=== PATIENT | male | born 1950 | race African-American/Black ===

== ENCOUNTER 2019-08-11 12:08 | Inpatient (IN) ==
[2019-08-11] MEDS ORDERED: SODIUM CHLORIDE 0.9% 1000ML 2,000 ML IV ONE (12:36)
[2019-08-11 12:44] VITALS: TEMP 99.1
--- NOTE | 2019-08-11 12:48 | Emergency Department Note ---
Entered by Annalee Toth acting as a scribe for Vinny Saldivar DO History of Present Illness General Chief complaint: Shortness of Breath/Dyspnea Time Seen by Provider: 08/11/19 12:26 Source: patient and RN notes reviewed Limitations: altered mental status History of Present Illness Onset (ago): hour(s) (prior to arrival) Location: left and right Pain Consistency: + other (episode) Quality: + other (lethargy) Associated symptoms: + shortness of breath and + other (-abdominal pain) The HPI and ROS are limited due to the patient's present altered mental status. The patient is a 69 year old male, with past medical history of prostate cancer and hepatitis C, who presents to the Emergency Room with complaints of an episode of lethargy that began prior to arrival. The patient also reports he feels short of breath, but the patient does not report of any abdominal pain. The RN reports the patients respiratory rate has been in the 40s and 50s, and he states neither him nor EMS could obtain a pulse oximeter reading. Home Medications Home Medications Medication Instructions Recorded Confirmed Type tamsulosin 0.4 mg PO HS 08/11/19 08/11/19 History Allergies Allergy/AdvReac Type Severity Reaction Status Date / Time No Known Allergies Allergy Verified 08/11/19 12:51 Past Med/Surg History Medical History Elevated PSA (Acute) Hepatitis C (Acute) Prostate cancer (Acute) Surgical History H/O foot surgery (Acute) Let tarun / re set arches 1960 `s H/O prostate biopsy (Acute) BX 03-06-2019 Family History Mother , in her 80 ` s Natural Father , in his 80` s Natural Brother No problems noted. Brother , age 60 `s Hypertension Coronary heart disease Brother , age 30 ` s Gunshot wound Sister No problems noted. Sister No problems noted. Sister No problems noted. Sister , in her 20 ` s Gunshot wound Social History Preferred Language: Guyanese Communication Ability: Effective Visual Impairment: No Limitations Hearing Ability: Normal Belt Turner Required: No Beliefs That Will Affect Care: None Current Living Situation: Other Current Living Situation Comment: Inmate at [facility] Shelter current occupational status: unemployed Feels Safe at Home: Yes Smoking Status: Never smoker Review of Systems See HPI for pertinent positives & negatives. Unobtainable due to cognitive status Physical Exam Vital Signs Vital Signs - 24 hr 08/11/19 12:41 08/11/19 12:44 08/11/19 14:02 Temperature 37.3 C Temperature Source Oral Pulse Rate 109 H Pulse Rate [Apical] 102 H Pulse Rhythm Regular Pulse Strength Normal Respiratory Rate 48 H 24 Respiratory Effort / Characteristics Spontaneous Respiratory Depth Normal Normal Respiratory Pattern Tachypnea Tachypnea Blood Pressure 125/75 Blood Pressure [Left Arm] 115/74 Blood Pressure Mean 91 Blood Pressure Mean [Left Arm] 87 Oxygen Delivery Method Nasal Cannula Oxygen Flow Rate 3 Sepsis Recent Fever Within 48 Hours No Sepsis Action Taken by Nursing No Action Required CONSTITUTIONAL/VITAL SIGNS: Reviewed / noted above. GENERAL: Non-toxic in appearance. Generalized weakness. INTEGUMENTARY: Warm, dry, and [place]. HEAD: Normocephalic. EYES: without scleral icterus or trauma. ENT/OROPHARYNX: clear and moist. LYMPHADENOPATHY/NECK: Is supple without lymphadenopathy or meningismus. RESPIRATORY: Lungs clear and equal. Tachypneic. CARDIOVASCULAR: Regular rate and rhythm. GI/ABDOMEN: Soft and nontender. No organomegaly or pulsatile mass. No rebound or guarding. Normal bowel sounds. EXTREMITIES: Warm and well perfused. Chronic-appearing pedal edema. BACK: No CVA tenderness. NEUROLOGICAL: Intact without focal deficits. PSYCHIATRIC: normal affect. MUSCULOSKELETAL: Normally developed with good muscle tone. Procedures ABG Interpretation ABG Interpretation 1: Interpretation: abnormal, respiratory alkalosis and metabolic acidosis Course Course 1227: Past medical records reviewed. The patient was evaluated in room B5. A complete history and physical exam was performed. 1446: I reviewed the patient's case with Dr. Leroy-Thomas [facility]. Dr. Leroy will evaluate the patient for further management. Consultations Consultation #1: I reviewed the patient's case with Dr. Leroy-Thomas [facility]. Dr. Leroy will evaluate the patient for further management. Time: 14:46 Administered Medications Discontinued Medications Aspirin (Aspirin Chew) 324 mg PO NOW STA Stop: 08/11/19 14:33 Last Admin: 08/11/19 15:05 Dose: Not Given Documented by: [id number] Sodium Chloride (Nss 1000ml) 2,000 mls @ 999 mls/hr IV .Q2H1M ONE Stop: 08/11/19 14:36 Last Admin: 08/11/19 13:00 Dose: 999 mls/hr Documented by: [id number] Sodium Chloride (Nss 1000ml) 1,000 mls @ 999 mls/hr IV .Q1H1M ONE Stop: 08/11/19 15:30 Last Admin: 08/11/19 15:04 Dose: 999 mls/hr Documented by: [id number] Ceftriaxone Sodium (Rocephin) 1,000 mg in 50 mls @ 100 mls/hr IV NOW STA Stop: 08/11/19 15:27 Last Admin: 08/11/19 15:00 Dose: 100 mls/hr Documented by: [id number] Critical Care Time Critical Care Time: Yes Total Critical Care Time: 45 I have personally spent 45 minutes of critical care time in the direct management of this patient. This includes bedside care, interpretation of diagnostic studies, and testing, discussion with consultants, patient, and family members, and other required patient management activities. This 45 minutes is in excess of all separately billable procedures. Medical Decision Making Differential Diagnosis Differential diagnosis: Etiologies such as metabolic, infection, hypo/hyperglycemia, electrolyte abnormalities, cardiac sources, intracerebral event, toxicologic, neurologic, as well as others were entertained. Medical Records Attestation: I reviewed the patient's medical records. Home Medications Current Medication List: was personally reviewed by me Laboratory Data Attestation: I reviewed the patient's lab results. Result diagrams: 08/11/19 14:25 08/11/19 13:19 Lab Results 08/11/19 08/11/19 08/11/19 Range/Units 12:45 13:19 13:19 WBC Cancelled RBC Cancelled Hgb Cancelled Hct Cancelled MCV Cancelled MCH Cancelled MCHC Cancelled RDW Std Deviation Cancelled RDW Coeff of Nik Cancelled Plt Count Cancelled MPV Cancelled Immature Gran % (Auto) Cancelled Neut % (Auto) Cancelled Lymph % (Auto) Cancelled Marion % (Auto) Cancelled Eos % (Auto) Cancelled Baso % (Auto) Cancelled Immature Gran # (Auto) Cancelled Neut # (Auto) Cancelled Lymph # (Auto) Cancelled Marion # (Auto) Cancelled Eos # (Auto) Cancelled Baso # (Auto) Cancelled Absolute Nucleated RBC Cancelled Nucleated RBC % (auto) Cancelled Neutrophils % (Manual) Cancelled Band Neutrophils % Cancelled Lymphocytes % (Manual) Cancelled Prolymphocyte % Cancelled Reactive Lymphs % (Man) Cancelled Monocytes % (Manual) Cancelled Eosinophils % (Manual) Cancelled Basophils % (Manual) Cancelled Metamyelocytes % (Man) Cancelled Myelocytes % (Man) Cancelled Promyelocytes % (Man) Cancelled Blast Cells % (Manual) Cancelled Plasma Cell % (Manual) Cancelled Other Cells % Cancelled Nucleated RBC % Cancelled Neutrophils # (Manual) Cancelled Band Neutrophils # Cancelled Total Absolute Neuts Cancelled Lymphocytes # (Manual) Cancelled Prolymphocyte # Cancelled Reactive Lymphs # Cancelled Total Abs Lymphocytes Cancelled Monocytes # (Manual) Cancelled Eosinophils # (Manual) Cancelled Basophils # (Manual) Cancelled Metamyelocytes # (Man) Cancelled Myelocytes # (Manual) Cancelled Promyelocytes # (Man) Cancelled Blast Cells # (Man) Cancelled Plasma Cell # (Manual) Cancelled Other Cells # Cancelled Nucleated RBCs # (Man) Cancelled Hypersegmented Neuts Cancelled Hyposegmented Neuts Cancelled Hypogranular Neuts Cancelled Large Granular Lymphs Cancelled # Lrg Granular Lymphs Cancelled Hairy Cells Cancelled Smudge Cells Cancelled Toxic Granulation Cancelled Toxic Vacuolation Cancelled Dohle Bodies Cancelled Barbara Rods Cancelled Platelet Estimate Cancelled Hypogranular Platelets Cancelled Clumped Platelets Cancelled Giant Platelets Cancelled Platelet Satelliting Cancelled RBC Morphology Cancelled Polychromasia Cancelled Hypochromasia Cancelled Poikilocytosis Cancelled Basophilic Stippling Cancelled Anisocytosis Cancelled Microcytosis Cancelled Macrocytosis Cancelled Spherocytes Cancelled Pappenheimer Bodies Cancelled Sickle Cells Cancelled Target Cells Cancelled Tear Drop Cells Cancelled Ovalocytes Cancelled Stomatocytes Cancelled Wharton-Frost Bodies Cancelled Echinocytes Cancelled Acanthocytes (Spur) Cancelled Rouleaux Cancelled RBC Agglutinates Cancelled Schistocytes Cancelled RBC Morph Comment Cancelled Sezary Cell Cancelled PT 14.6 H (9.0-12.0) Seconds INR 1.5 H (0.9-1.1) APTT 29.0 (21.0-31.0) Seconds PTT Ratio 1.1 ABG pH (7.35-7.45) ABG pCO2 (35-46) mmHg ABG pO2 (80-95) mmHg ABG HCO3 (19-24) mmol/L ABG O2 Saturation (90-95) % ABG Base Excess (-9-1.8) mEq/L Nigel Test (Pos) Barometric Pressure mm/Hg Oxygen Given Sodium (136-145) mmol/L Potassium (3.5-5.1) mmol/L Chloride (98-107) mmol/L Carbon Dioxide (21-32) mmol/L Anion Gap (3-11) BUN (7-18) mg/dl Creatinine (0.6-1.4) mg/dl Est Cr Clr Drug Dosing Est GFR ( Amer) Est GFR (Non-Af Amer) BUN/Creatinine Ratio (10-20) Glucose (70-99) mg/dl Lactate (0.4-2.0) mmol/L Calcium (8.5-10.1) mg/dl Magnesium (1.8-2.4) mg/dl Total Bilirubin (0.2-1) mg/dl AST (15-37) U/L ALT (12-78) U/L Alkaline Phosphatase (45-117) U/L Ammonia (11-32) umol/L Troponin I (0-0.045) ng/ml Total Protein (6.4-8.2) gm/dl Albumin (3.4-5.0) gm/dl Globulin (2.5-4.0) gm/dl Albumin/Globulin Ratio (0.9-2) TSH (0.300-4.500) uIu/ml Ethyl Alcohol mg/dL (0-3) mg/dl Influenza Type A Ag Neg for Influ A (Neg) Influenza Type B Ag Neg for Influ B (Neg) 08/11/19 08/11/19 08/11/19 Range/Units 13:19 13:19 13:30 WBC RBC Hgb Hct MCV MCH MCHC RDW Std Deviation RDW Coeff of Nik Plt Count MPV Immature Gran % (Auto) Neut % (Auto) Lymph % (Auto) Marion % (Auto) Eos % (Auto) Baso % (Auto) Immature Gran # (Auto) Neut # (Auto) Lymph # (Auto) Marion # (Auto) Eos # (Auto) Baso # (Auto) Absolute Nucleated RBC Nucleated RBC % (auto) Neutrophils % (Manual) Band Neutrophils % Lymphocytes % (Manual) Prolymphocyte % Reactive Lymphs % (Man) Monocytes % (Manual) Eosinophils % (Manual) Basophils % (Manual) Metamyelocytes % (Man) Myelocytes % (Man) Promyelocytes % (Man) Blast Cells % (Manual) Plasma Cell % (Manual) Other Cells % Nucleated RBC % Neutrophils # (Manual) Band Neutrophils # Total Absolute Neuts Lymphocytes # (Manual) Prolymphocyte # Reactive Lymphs # Total Abs Lymphocytes Monocytes # (Manual) Eosinophils # (Manual) Basophils # (Manual) Metamyelocytes # (Man) Myelocytes # (Manual) Promyelocytes # (Man) Blast Cells # (Man) Plasma Cell # (Manual) Other Cells # Nucleated RBCs # (Man) Hypersegmented Neuts Hyposegmented Neuts Hypogranular Neuts Large Granular Lymphs # Lrg Granular Lymphs Hairy Cells Smudge Cells Toxic Granulation Toxic Vacuolation Dohle Bodies Barbara Rods Platelet Estimate Hypogranular Platelets Clumped Platelets Giant Platelets Platelet Satelliting RBC Morphology Polychromasia Hypochromasia Poikilocytosis Basophilic Stippling Anisocytosis Microcytosis Macrocytosis Spherocytes Pappenheimer Bodies Sickle Cells Target Cells Tear Drop Cells Ovalocytes Stomatocytes Wharton-Frost Bodies Echinocytes Acanthocytes (Spur) Rouleaux RBC Agglutinates Schistocytes RBC Morph Comment Sezary Cell PT (9.0-12.0) Seconds INR (0.9-1.1) APTT (21.0-31.0) Seconds PTT Ratio ABG pH (7.35-7.45) ABG pCO2 (35-46) mmHg ABG pO2 (80-95) mmHg ABG HCO3 (19-24) mmol/L ABG O2 Saturation (90-95) % ABG Base Excess (-9-1.8) mEq/L Nigel Test (Pos) Barometric Pressure mm/Hg Oxygen Given Sodium 138 (136-145) mmol/L Potassium 4.0 (3.5-5.1) mmol/L Chloride 104 (98-107) mmol/L Carbon Dioxide 19 L (21-32) mmol/L Anion Gap 15.0 H (3-11) BUN 72 H (7-18) mg/dl Creatinine 3.95 H (0.6-1.4) mg/dl Est Cr Clr Drug Dosing Not Reportable Est GFR ( Amer) 17.1 Est GFR (Non-Af Amer) 14.7 BUN/Creatinine Ratio 18.2 (10-20) Glucose 130 H (70-99) mg/dl Lactate (0.4-2.0) mmol/L Calcium 9.3 (8.5-10.1) mg/dl Magnesium 2.5 H (1.8-2.4) mg/dl Total Bilirubin 2.0 H (0.2-1) mg/dl AST 633 H (15-37) U/L ALT 246 H (12-78) U/L Alkaline Phosphatase 45 (45-117) U/L Ammonia < 10.0 L (11-32) umol/L Troponin I 96.700 H* (0-0.045) ng/ml Total Protein 7.9 (6.4-8.2) gm/dl Albumin 2.8 L (3.4-5.0) gm/dl Globulin 5.1 H (2.5-4.0) gm/dl Albumin/Globulin Ratio 0.6 L (0.9-2) TSH 1.140 (0.300-4.500) uIu/ml Ethyl Alcohol mg/dL < 3.0 (0-3) mg/dl Influenza Type A Ag (Neg) Influenza Type B Ag (Neg) 08/11/19 08/11/19 08/11/19 Range/Units 13:30 13:43 14:25 WBC 9.01 RBC 4.44 L Hgb 13.3 L Hct 38.3 L MCV 86.3 MCH 30.0 MCHC 34.7 RDW Std Deviation 43.7 RDW Coeff of Nik 14.0 Plt Count 99 L MPV 11.2 H Immature Gran % (Auto) 1.0 Neut % (Auto) 87.4 Lymph % (Auto) 6.2 Marion % (Auto) 5.3 Eos % (Auto) 0.0 Baso % (Auto) 0.1 Immature Gran # (Auto) 0.09 H Neut # (Auto) 7.87 H Lymph # (Auto) 0.56 L Marion # (Auto) 0.48 Eos # (Auto) 0.00 Baso # (Auto) 0.01 Absolute Nucleated RBC Nucleated RBC % (auto) Neutrophils % (Manual) Band Neutrophils % Lymphocytes % (Manual) Prolymphocyte % Reactive Lymphs % (Man) Monocytes % (Manual) Eosinophils % (Manual) Basophils % (Manual) Metamyelocytes % (Man) Myelocytes % (Man) Promyelocytes % (Man) Blast Cells % (Manual) Plasma Cell % (Manual) Other Cells % Nucleated RBC % Neutrophils # (Manual) Band Neutrophils # Total Absolute Neuts Lymphocytes # (Manual) Prolymphocyte # Reactive Lymphs # Total Abs Lymphocytes Monocytes # (Manual) Eosinophils # (Manual) Basophils # (Manual) Metamyelocytes # (Man) Myelocytes # (Manual) Promyelocytes # (Man) Blast Cells # (Man) Plasma Cell # (Manual) Other Cells # Nucleated RBCs # (Man) Hypersegmented Neuts Hyposegmented Neuts Hypogranular Neuts Large Granular Lymphs # Lrg Granular Lymphs Hairy Cells Smudge Cells Toxic Granulation Toxic Vacuolation 2+ Dohle Bodies Barbara Rods Platelet Estimate Decreased L Hypogranular Platelets Clumped Platelets Giant Platelets 1+ Platelet Satelliting RBC Morphology Polychromasia Hypochromasia Poikilocytosis Basophilic Stippling Anisocytosis Microcytosis Macrocytosis Spherocytes Pappenheimer Bodies Sickle Cells Target Cells Tear Drop Cells Ovalocytes Stomatocytes Wharton-Frost Bodies Echinocytes Acanthocytes (Spur) Rouleaux RBC Agglutinates Schistocytes RBC Morph Comment Sezary Cell PT (9.0-12.0) Seconds INR (0.9-1.1) APTT (21.0-31.0) Seconds PTT Ratio ABG pH 7.53 H* (7.35-7.45) ABG pCO2 23 L (35-46) mmHg ABG pO2 64 L (80-95) mmHg ABG HCO3 19 (19-24) mmol/L ABG O2 Saturation 93.0 (90-95) % ABG Base Excess -2.3 (-9-1.8) mEq/L Nigel Test Pos (Pos) Barometric Pressure 737.0 mm/Hg Oxygen Given ROOM AIR Sodium (136-145) mmol/L Potassium (3.5-5.1) mmol/L Chloride (98-107) mmol/L Carbon Dioxide (21-32) mmol/L Anion Gap (3-11) BUN (7-18) mg/dl Creatinine (0.6-1.4) mg/dl Est Cr Clr Drug Dosing Est GFR ( Amer) Est GFR (Non-Af Amer) BUN/Creatinine Ratio (10-20) Glucose (70-99) mg/dl Lactate 6.5 H* (0.4-2.0) mmol/L Calcium (8.5-10.1) mg/dl Magnesium (1.8-2.4) mg/dl Total Bilirubin (0.2-1) mg/dl AST (15-37) U/L ALT (12-78) U/L Alkaline Phosphatase (45-117) U/L Ammonia (11-32) umol/L Troponin I (0-0.045) ng/ml Total Protein (6.4-8.2) gm/dl Albumin (3.4-5.0) gm/dl Globulin (2.5-4.0) gm/dl Albumin/Globulin Ratio (0.9-2) TSH (0.300-4.500) uIu/ml Ethyl Alcohol mg/dL (0-3) mg/dl Influenza Type A Ag (Neg) Influenza Type B Ag (Neg) Imaging Data Radiologist's Impression: Radiology results as stated below per my review and the radiologist's interpretation: XR chest 1V portable CLINICAL HISTORY: sob COMPARISON STUDY: No previous studies for comparison. FINDINGS: The heart is enlarged. There is a retrocardiac opacity consistent with a hiatal hernia. There is an 8 cm right upper lobe airspace opacity. It is not possible to differentiate pneumonia from a pulmonary mass in the bases of the study. Clinical and radiographic follow-up is recommended.[ IMPRESSION: 8 cm right upper lobe airspace opacity, pneumonia versus pulmonary mass. Clinical and radiographic follow-up is recommended. ACT 112: Negative or not required by law. Electronically signed by: Xavi Downing M.D. 08/11/2019 12:[address] CT DOSE: 729.78 mGycm HISTORY: Altered mental status. TECHNIQUE: Multiaxial CT images of the head were performed without the use of intravenous contrast. Automated exposure control was utilized for this study. A dose lowering technique was utilized adhering to the principles of ALARA. Comparison: None. Findings: The paranasal sinuses and mastoid air cells are clear. The calvarium and skull base are intact. The ventricles and sulci are within normal limits. There is no mass, hematoma, midline shift, or acute infarct. Impression: No acute intracranial abnormality. ACT 112: Negative or not required by law. Electronically signed by: Sang Duffy M.D. 08/11/2019 2:[address] chest wo con CT DOSE: 787.65 mGycm HISTORY: Mass chest mass vs pneumonia TECHNIQUE: Multiaxial CT images of the chest were performed without contrast. A dose lowering technique was utilized adhering to the principles of ALARA. COMPARISON: Chest series 08/11/2019 FINDINGS: Consolidative infiltrative process versus mass right perihilar and right suprahilar region. This has maximum overall dimensions of 9.6 x 6.6 cm. Several air bronchograms are present. Medially peripheral to this consolidative process are small nodules primarily in the right middle lobe region measuring up to 2.3 cm. Patient with partial truncation of the right lower lobe mainstem bronchus. The left lung demonstrates mild left basilar atelectasis. Left lung otherwise is clear. No significant mediastinal or hilar adenopathy within limitations of the masslike changes previously described. Diagnostic considerations include consolidative infiltrate versus mass. May be a minimal infiltrative process superior segment right lower lobe as well. IMPRESSION: 1. Consolidative infiltrate versus mass right suprahilar and right perihilar region. 2. Additional satellite type nodules adjacent to the right hilum as well as in the superior segment right lower lobe. 3. Clinical options include bronchoscopy, versus a repeat CT scan following appropriate course of medical nonsurgical treatment. 4. Regardless, in any event this CT should be closely followed to ensure complete resolution. ACT 112: Negative or not required by law. The above report was generated using voice recognition software. It may contain grammatical, syntax or spelling errors. Electronically signed by: Raúl Feliz M.D. 08/11/2019 3:00 PM ECG Data Attestation: I personally reviewed and interpreted this ECG as follows: Indication: + SOB/dyspnea, + tachycardia and + weakness Rate (beats per minute): 118 Rhythm: + sinus tachycardia ECG Intervals/blocks: + First degree AV block, + Left bundle branch block and + Normal QT-c ECG Findings: no PVCs Blood Pressure Blood Pressure Findings: Normal blood pressure MDM Narrative This is a 69-year-old male who presents to the ED from the local nursing home. The patient presents lethargic. He does report some shortness of breath and weakness. He is unable to provide any significant history as he appears to be too weak and he whispers when he speaks and therefore he is unable to be heard. The patient appears to be generally weak. His vital signs are noted. He is slightly tachycardic and tachypneic. He is afebrile. Pulse ox is not able to be detected as the patient's fingers are cool. His blood pressure seems to be fine but his radial pulses are somewhat thready. He is slightly tachycardic. He does not appear to be in any distress but seems significantly weak. The patient does not have any abdominal tenderness. His lungs are diminished but appear to be clear. He does have some chronic appearing pedal edema. Rest of exam was unremarkable. A twelve-lead EKG shows a sinus tachycardia at a rate of 118 with a left bundle branch block. No old EKGs available for comparison. Lactic acid level 6.5. BUN is 72 and creatinine is 3.95. Creatinine on 07/22/2019 was 1.09. AST is 633 and ALT is 246. Troponin came back elevated at 99. Flu swab was negative. Chest x-ray reveals right upper lobe airspace mass versus infiltrate. A CT scan shows the same thing of the chest. ABG reveals a respiratory alkalosis with a PCO2 of 23. This is likely a overcompensated respiratory alkalosis compensating for metabolic acidosis. PO2 was 64 on room air. This is adequate oxygenation. The patient was given a total of 3 L of no rmal saline IV. He was started on IV Rocephin as well as given IV Zosyn. He was given aspirin p.o. but cannot tolerate p.o. He could not swallow it. He states that this is been going on for a couple of weeks where he cannot swallow substances. Alcohol level is negative. TSH was normal. The patient will be seen by the hospitalist for further inpatient evaluation and care. Impression & Plan Acute renal failure, AMS (altered mental status), Elevated troponin, Complete left bundle branch block (LBBB) Discharge Plan Visit Data Chief Complaint: Shortness of Breath/Dyspnea ED Provider: Vinny Saldivar Discharge Problem: Acute renal failure, AMS (altered mental status), Elevated troponin, Complete left bundle branch block (LBBB) Patient Disposition: Being Evaluated by Hospitalist Forms Stand Alone Forms: My [facility] Prescriptions Prescriptions: No Action tamsulosin 0.4 mg Capsule 0.4 mg PO HS RF: 0 Referrals Referrals: Wanda FELIZ [Primary Care Provider] - Discharge Problem: Acute renal failure Qualifiers: Acute renal failure type: unspecified Qualified Code(s): N17.9 - Acute kidney failure, unspecified AMS (altered mental status) Qualifiers: Altered mental status type: unspecified Qualified Code(s): R41.82 - Altered mental status, unspecified The scribe's documentation has been prepared under my direction and personally reviewed by me in its entirety. I confirm that the note above accurately reflects all work, treatment, procedures, and medical decision making performed by me.
--- NOTE | 2019-08-11 12:59 | XRay Report ---
XR chest 1V portable CLINICAL HISTORY: sob COMPARISON STUDY: No previous studies for comparison. FINDINGS: The heart is enlarged. There is a retrocardiac opacity consistent with a hiatal hernia. The re is an 8 cm right upper lobe airspace opacity. It is not possible to differentiate pneumonia from a pulmonary mass in the bases of the study. Clinical and radiographic follow-up is recommended.[ IMPRESSION: 8 cm right upper lobe airspace opacity, pneumonia versus pulmonary mass. Clinical and rad iographic follow-up is recommended. ACT 112: Negative or not required by law. Electronically signed by: Xavi Downing M.D. 08/11/2019 12:58 PM
[2019-08-11 13:54] LABS: Base Excess ABG -2.3 mEq/L (-9-1.8); HCO3 ABG 19 mmol/L (19-24); PCO2 ABG 23 mmHg (35-46); PO2 ABG 64 mmHg (80-95)
[2019-08-11 13:56] LABS: INR 1.5 (0.9-1.1); Partial Thromboplastin Ratio 1.1; Prothrombin Time 14.6 Seconds (9.0-12.0)
[2019-08-11 14:00] LABS: pH ABG 7.53 (7.35-7.45)
[2019-08-11 14:01] LABS: Allen Test Pos (Pos)
[2019-08-11 14:02] LABS: Alanine Aminotransferase 246 U/L (12-78); Albumin Level 2.8 gm/dl (3.4-5.0); Aspartate Aminotransferase 633 U/L (15-37); BUN Creatinine Ratio 18.2 (10-20); Blood Urea Nitrogen 72 mg/dl (7-18); Calcium 9.3 mg/dl (8.5-10.1); Carbon Dioxide 19 mmol/L (21-32); Chloride 104 mmol/L (98-107); Est GFR (African American) 17.1; Est GFR (Non-African American) 14.7; Glucose 130 mg/dl (70-99); Magnesium 2.5 mg/dl (1.8-2.4); Sodium 138 mmol/L (136-145)
[2019-08-11 14:24] LABS: Albumin Globulin Ratio 0.6 (0.9-2); Alkaline Phosphatase 45 U/L (45-117); Globulin 5.1 gm/dl (2.5-4.0); Total Protein 7.9 gm/dl (6.4-8.2)
[2019-08-11] MEDS ORDERED: SODIUM CHLORIDE 0.9% 1000ML 1,000 ML IV ONE (14:30)
[2019-08-11] MEDS ORDERED: ASPIRIN 81 MG CHEW PO STA (14:32)
[2019-08-11 14:54] LABS: Basophils # (auto) 0.01 K/uL (0-0.2); Basophils % (auto) 0.1 %; Giant Platelets 1+; Hematocrit (blood only) 38.3 % (42-52); Hemoglobin 13.3 g/dL (14.0-18.0); Immature Granulocytes # (auto) 0.09 K/uL (0.00-0.02); Lymphocytes # (auto) 0.56 K/uL (1.2-3.4); Lymphocytes % (auto) 6.2 %; Mean Corpuscular Hgb Conc 34.7 g/dL (32-36); Mean Corpuscular Volume 86.3 fL (80-100); Mean Platelet Volume 11.2 fL (7.4-10.4); Monocytes # (auto) 0.48 K/uL (0.11-0.59); Monocytes % (auto) 5.3 %; Neutrophils # (auto) 7.87 K/uL (1.4-6.5); Neutrophils % (auto) 87.4 %; Platelet Count 99 K/uL (130-400); Platelet Estimate Decreased (Normal); RDW Standard Deviation 43.7 fL (36.4-46.3); Red Blood Count 4.44 M/uL (4.7-6.1); Toxic Vacuolation 2+; White Blood Count 9.01 K/uL (4.8-10.8)
[2019-08-11] MEDS ORDERED: cefTRIAXone SODIUM 1,000 MG/50 ML BAG IV STA (14:58)
--- NOTE | 2019-08-11 14:58 | CT Scan Report ---
HEAD CT NONCONTRAST CT DOSE: 729.78 mGycm HISTORY: Altered mental status. TECHNIQUE: Multiaxial CT images of the head were performed without the use of intravenous contrast. A utomated exposure control was utilized for this study. A dose lowering technique was utilized adheri ng to the principles of ALARA. Comparison: None. Findings: The paranasal sinuses and mastoid air cells are clear. The calvarium and skull base are int act. The ventricles and sulci are within normal limits. There is no mass, hematoma, midline shift, or acute infarct. Impression: No acute intracranial abnormality. ACT 112: Negative or not required by law. Electronically signed by: Sang Duffy M.D. 08/11/2019 2:56 PM
--- NOTE | 2019-08-11 15:01 | CT Scan Report ---
CT chest wo con CT DOSE: 787.65 mGycm HISTORY: Mass chest mass vs pneumonia TECHNIQUE: Multiaxial CT images of the chest were performed without contrast. A dose lowering techni que was utilized adhering to the principles of ALARA. COMPARISON: Chest series 08/11/2019 FINDINGS: Consolidative infiltrative process versus mass right perihilar and right suprahilar region. This has maximum overall dimensions of 9.6 x 6.6 cm. Several air bronchograms are present. Medially peripheral to this consolidative process are small nodules primarily in the right middle lob e region measuring up to 2.3 cm. Patient with partial truncation of the right lower lobe mainstem bronchus. The left lung demonstrates mild left basilar atelectasis. Left lung otherwise is clear. No significant mediastinal or hilar adenopathy within limitations of the masslike changes previously described. Diagnostic considerations include consolidative infiltrate versus mass. May be a minimal infiltrative process superior segment right lower lobe as well. IMPRESSION: 1. Consolidative infiltrate versus mass right suprahilar and right perihilar region. 2. Additional satellite type nodules adjacent to the right hilum as well as in the superior segment r ight lower lobe. 3. Clinical options include bronchoscopy, versus a repeat CT scan following appropriate course of med ical nonsurgical treatment. 4. Regardless, in any event this CT should be closely followed to ensure complete resolution. ACT 112: Negative or not required by law. The above report was generated using voice recognition software. It may contain grammatical, syntax or spelling errors. Electronically signed by: Raúl Feliz M.D. 08/11/2019 3:00 PM
[2019-08-11] MEDS ORDERED: PIPERACILL/TAZOBAC CONSULT ACTIVE PRN (15:29)
[2019-08-11] MEDS ORDERED: PIPERACILLIN/TAZOBACTAM 4.5 GM/120 ML BAG IV ONE (15:29)
[2019-08-11] MEDS ORDERED: RAPID SEQUENCE INDUCTION BAG ONE (16:21)
[2019-08-11] MEDS ORDERED: PROPOFOL IV EMULSION 10 MG/ML 100 ML VIAL IV ONE ×2 (16:21→16:55)
[2019-08-11 16:35] LABS: Creatine Kinase MB 49.4 ng/ml (0.5-3.6)
[2019-08-11] MEDS ORDERED: MIDAZOLAM HCL 1 MG/ML 2ML VIAL ONE ×2 (16:45→17:53)
[2019-08-11] MEDS ORDERED: fentaNYL citrate 100 MCG/2 ML VIAL ONE (16:45)
[2019-08-11] MEDS ORDERED: NiCARDipine HCL INJ 2.5 MG/ML 10 ML AMP ONE (16:45)
[2019-08-11] MEDS ORDERED: HEPARIN (PORCINE) 1000 UNIT/ML 10 ML (CATH LAB USE ONLY) ONE ×2 (16:45→17:30)
[2019-08-11] MEDS ORDERED: NITROGLYCERIN/D5W 100MCG/ML 20ML SYR ONE (16:46)
--- NOTE | 2019-08-11 16:47 | History & Physical Report ---
Date of Service August 11, 2019 Assessment & Plan (1) Elevated troponin: 69yo AA male with history of prostate CA on XRT, HCV presenting from [facility] with complaint of lethargy. Patient found to have markedly elevated troponin of 96.7 with LBBB on EKG. Also with elevated lactic acid, KELL and elevated liver studies. MICU consulted urgently for admission Cardiology consulted urgently for possible catheterization Bedside echocardiogram performed which revealed severely depressed EF. Patient intubated in the ER and sent for urgent cardiac catheterization. Neuro - patient somnolent, arousable, answers some questions and follows some commands. No focal deficits. Per discussion with COs at bedside, patient is ambulatory and conversational normally and he is far from his baseline at present. Suspect metabolic encephalopathy in setting of poor perfusion, cardiac event, KELL. Presently intubated and sedated. -Continue sedation with Propofol gtt. Titrate for RASS 0 - -1 -Fentanyl 50mcg IV q 2 hours PRN pain Pulmonary - patient markedly tachypneic on arrival with RR in 40's. ABG with hypoxia, 7.53/23/64. CT with consolidation vs mass in right suprahilar and right perihilar region. Patient intubated for work of breathing in the ER, mechanical ventilation. Patient with prostate CA, ?metastatic focus vs infection. Patient administered Ceftriaxone x 1 gm in the ER. -Pulm/CC consultation - possible bronchoscopy later today -Sputum for gram stain ordered -Procalcitonin ordered -?Sputum cytology vs biopsy per pulmonary -Will defer additional antibiotics at this time Cardiovascular - patient with markedly elevated troponin at 96.7 --> 123. EKG with LBBB, no prior study available in our records or at [facility]. Bedside echocardiogram with depressed EF. Concern for acute coronary event leading to some degree of cardiogenic shock, poor perfusion resulting in KELL/elevated lactate/elevated liver studies and AMS. -Cardiology consulted -Patient to boat laborer now -Will check AIC and Lipids in AM for risk stratification Gastrointestinal - Patient with HCV. Abnormal LFTs on arrival, mildly elevated INR = 1.5 -Check liver US -LFTs, INR with AM labs -OGT ordered -Protonix 40mg po daily while intubated for GI prophylaxis Genitourinary - Patient with KELL on CKD. Cr from 07/19/19 = 1.09, presently 3.95. K=4, HCO3=19. Suspect poor perfusion, ?ATN in setting of cardiogenic shock. Patient to boat laborer now, may require HD after contrast load. Patient with prostate CA (T2a Ghulam 4+3), has been seen by Urology in the past. Presently receiving XRT. Was previously on Casodex (started 05/29/19) and Luprol (06/11/19) but does not appear to be on either at this time. He had staging performed in April [address] abdomen/pelvis with contrast which revealed no evidence of metastatic disease. Bone scan performed 05/02/19 with no metastatic disease. -Check urine Na and Cr to calculate FeNa -Check urine eosinophils -Maintain Fried catheter -Avoid nephrotoxic agents -Renal dosing where needed -Monitor BUN/Cr/electrolytes and UOP Hematology - Stable H/H at 13.3 and 38.3. Thrombocytopenia with platelets = 99 -Continue to monitor CBC ID - Afebrile at present. Lung lesion as above, possible consolidation -Procalcitonin ordered -Possible bronchoscopy -Will defer additional antibiotics at this time Endocrine- No active issues -Blood sugar = 130, no prior history of DM -Check A1C with AM labs F/E/N - Patient administered 3L NSS in the ER. Monitor electrolytes and replete as needed. NPO for now Ppx - Heparin TID for DVT ppx. Protonix for GI ppx while intubated/ventilated Code - Full Dispo - Admit to MICU (2) AMS (altered mental status): (3) Acute renal failure: (4) Prostate cancer: (5) Elevated lactic acid level: (6) Complete left bundle branch block (LBBB): (7) Hypertension: (8) Abnormal liver enzymes: History of Present Illness Chief Complaint: Lethargy Primary Care Provider: [facility] 69yo AA male with history of prostate cancer on XRT, HCV presenting from [facility] with complaint of lethargy. Patient answers some questions and follows some commands but does not provide a robust history. Per review of outpatient records, patient with active HCV. Labs from 07/19 with BUN=22, Cr=1.09 ER Course: NSS x 3L, Ceftriaxone x 1gm. ASA 324mg ordered, not administered Allergies Allergy/AdvReac Type Severity Reaction Status Date / Time No Known Allergies Allergy Verified 08/11/19 12:51 Home Medications Home Medications Medication Instructions Recorded Confirmed Type tamsulosin 0.4 mg PO HS 08/11/19 08/11/19 History Past Med/Surg History Medical History (Updated 08/11/19 @ 17:02 by Felicitas Leroy DO) Elevated PSA (Acute) Hepatitis C (Acute) Hypertension Prostate cancer (Acute) Surgical History H/O foot surgery (Acute) Let tarun / re set arches 1960 `s H/O prostate biopsy (Acute) BX 03-06-2019 Family History Mother , in her 80 ` s Natural Father , in his 80` s Natural Brother No problems noted. Brother , age 60 `s Hypertension Coronary heart disease Brother , age 30 ` s Gunshot wound Sister No problems noted. Sister No problems noted. Sister No problems noted. Sister , in her 20 ` s Gunshot wound Social History Preferred Language: Samoan Communication Ability: Effective Visual Impairment: No Limitations Hearing Ability: Normal Volleyball Commentator Required: No Beliefs That Will Affect Care: None Current Living Situation: Other Current Living Situation Comment: Inmate at [facility] current occupational status: unemployed Feels Safe at Home: Yes Smoking Status: Never smoker Review of Systems Review of Systems: Unobtainable due to reduced consciousness Physical Exam Physical Exam: General: patient somnolent, arousable, answers some questions with whisper and follows some commands. Acutely ill in appearance. AA&O x 3 Skin: warm, dry, intact, no rashes or lesions HEENT: NC/AT, PERRL, EOMI, anicteric sclera, conjunctiva without injection, external ear normal to inspection and nontender, nares patent, moist mucus membranes, dentition intact, no oropharyngeal lesions, neck supple, trachea midline, no LAD, no thyromegaly, no JVD Heart: +S1/S2, regular, tachycardic, no m/r/g Lungs: equal air entry bilaterally, no rales/rhonchi/wheezes, diminished breath sounds in bases bilaterally, tachypneic with RR 40's Abd: +BS, soft, NT/ND, no masses/organomegaly/ascites Ext: cool, 2+ pulses in UE/LE bilaterally, no clubbing/cyanosis, trace pitting edema Neuro: somnolent, arousable, patient AA&O x 4, no facial droop, moving all extremities on command, diffusely weak Results & Data Vital Signs (Past 12 Hours) Vital Signs Temp Pulse Pulse Resp BP BP 08/11/19 14:02 102 H 24 115/74 08/11/19 12:41 37.3 C 109 H 48 H 125/75 Laboratory Results Lab Results 08/11/19 08/11/19 08/11/19 Range/Units 12:45 13:19 13:19 WBC Cancelled RBC Cancelled Hgb Cancelled Hct Cancelled MCV Cancelled MCH Cancelled MCHC Cancelled RDW Std Deviation Cancelled RDW Coeff of Nik Cancelled Plt Count Cancelled MPV Cancelled Immature Gran % (Auto) Cancelled Neut % (Auto) Cancelled Lymph % (Auto) Cancelled Metcalfe % (Auto) Cancelled Eos % (Auto) Cancelled Baso % (Auto) Cancelled Immature Gran # (Auto) Cancelled Neut # (Auto) Cancelled Lymph # (Auto) Cancelled Metcalfe # (Auto) Cancelled Eos # (Auto) Cancelled Baso # (Auto) Cancelled Absolute Nucleated RBC Cancelled Nucleated RBC % (auto) Cancelled Neutrophils % (Manual) Cancelled Band Neutrophils % Cancelled Lymphocytes % (Manual) Cancelled Prolymphocyte % Cancelled Reactive Lymphs % (Man) Cancelled Monocytes % (Manual) Cancelled Eosinophils % (Manual) Cancelled Basophils % (Manual) Cancelled Metamyelocytes % (Man) Cancelled Myelocytes % (Man) Cancelled Promyelocytes % (Man) Cancelled Blast Cells % (Manual) Cancelled Plasma Cell % (Manual) Cancelled Other Cells % Cancelled Nucleated RBC % Cancelled Neutrophils # (Manual) Cancelled Band Neutrophils # Cancelled Total Absolute Neuts Cancelled Lymphocytes # (Manual) Cancelled Prolymphocyte # Cancelled Reactive Lymphs # Cancelled Total Abs Lymphocytes Cancelled Monocytes # (Manual) Cancelled Eosinophils # (Manual) Cancelled Basophils # (Manual) Cancelled Metamyelocytes # (Man) Cancelled Myelocytes # (Manual) Cancelled Promyelocytes # (Man) Cancelled Blast Cells # (Man) Cancelled Plasma Cell # (Manual) Cancelled Other Cells # Cancelled Nucleated RBCs # (Man) Cancelled Hypersegmented Neuts Cancelled Hyposegmented Neuts Cancelled Hypogranular Neuts Cancelled Large Granular Lymphs Cancelled # Lrg Granular Lymphs Cancelled Hairy Cells Cancelled Smudge Cells Cancelled Toxic Granulation Cancelled Toxic Vacuolation Cancelled Dohle Bodies Cancelled Barbara Rods Cancelled Platelet Estimate Cancelled Hypogranular Platelets Cancelled Clumped Platelets Cancelled Giant Platelets Cancelled Platelet Satelliting Cancelled RBC Morphology Cancelled Polychromasia Cancelled Hypochromasia Cancelled Poikilocytosis Cancelled Basophilic Stippling Cancelled Anisocytosis Cancelled Microcytosis Cancelled Macrocytosis Cancelled Spherocytes Cancelled Pappenheimer Bodies Cancelled Sickle Cells Cancelled Target Cells Cancelled Tear Drop Cells Cancelled Ovalocytes Cancelled Stomatocytes Cancelled Wharton-Berwick Bodies Cancelled Echinocytes Cancelled Acanthocytes (Spur) Cancelled Rouleaux Cancelled RBC Agglutinates Cancelled Schistocytes Cancelled RBC Morph Comment Cancelled Sezary Cell Cancelled PT 14.6 H (9.0-12.0) Seconds INR 1.5 H (0.9-1.1) APTT 29.0 (21.0-31.0) Seconds PTT Ratio 1.1 ABG pH (7.35-7.45) ABG pCO2 (35-46) mmHg ABG pO2 (80-95) mmHg ABG HCO3 (19-24) mmol/L ABG O2 Saturation (90-95) % ABG Base Excess (-9-1.8) mEq/L Nigel Test (Pos) Barometric Pressure mm/Hg Oxygen Given Sodium (136-145) mmol/L Potassium (3.5-5.1) mmol/L Chloride (98-107) mmol/L Carbon Dioxide (21-32) mmol/L Anion Gap (3-11) BUN (7-18) mg/dl Creatinine (0.6-1.4) mg/dl Est Cr Clr Drug Dosing Est GFR ( Amer) Est GFR (Non-Af Amer) BUN/Creatinine Ratio (10-20) Glucose (70-99) mg/dl Lactate (0.4-2.0) mmol/L Calcium (8.5-10.1) mg/dl Magnesium (1.8-2.4) mg/dl Total Bilirubin (0.2-1) mg/dl AST (15-37) U/L ALT (12-78) U/L Alkaline Phosphatase (45-117) U/L Ammonia (11-32) umol/L CK-MB (CK-2) (0.5-3.6) ng/ml Troponin I (0-0.045) ng/ml Total Protein (6.4-8.2) gm/dl Albumin (3.4-5.0) gm/dl Globulin (2.5-4.0) gm/dl Albumin/Globulin Ratio (0.9-2) TSH (0.300-4.500) uIu/ml Ethyl Alcohol mg/dL (0-3) mg/dl Influenza Type A Ag Neg for Influ A (Neg) Influenza Type B Ag Neg for Influ B (Neg) 08/11/19 08/11/19 08/11/19 Range/Units 13:19 13:19 13:30 WBC RBC Hgb Hct MCV MCH MCHC RDW Std Deviation RDW Coeff of Nik Plt Count MPV Immature Gran % (Auto) Neut % (Auto) Lymph % (Auto) Metcalfe % (Auto) Eos % (Auto) Baso % (Auto) Immature Gran # (Auto) Neut # (Auto) Lymph # (Auto) Metcalfe # (Auto) Eos # (Auto) Baso # (Auto) Absolute Nucleated RBC Nucleated RBC % (auto) Neutrophils % (Manual) Band Neutrophils % Lymphocytes % (Manual) Prolymphocyte % Reactive Lymphs % (Man) Monocytes % (Manual) Eosinophils % (Manual) Basophils % (Manual) Metamyelocytes % (Man) Myelocytes % (Man) Promyelocytes % (Man) Blast Cells % (Manual) Plasma Cell % (Manual) Other Cells % Nucleated RBC % Neutrophils # (Manual) Band Neutrophils # Total Absolute Neuts Lymphocytes # (Manual) Prolymphocyte # Reactive Lymphs # Total Abs Lymphocytes Monocytes # (Manual) Eosinophils # (Manual) Basophils # (Manual) Metamyelocytes # (Man) Myelocytes # (Manual) Promyelocytes # (Man) Blast Cells # (Man) Plasma Cell # (Manual) Other Cells # Nucleated RBCs # (Man) Hypersegmented Neuts Hyposegmented Neuts Hypogranular Neuts Large Granular Lymphs # Lrg Granular Lymphs Hairy Cells Smudge Cells Toxic Granulation Toxic Vacuolation Dohle Bodies Barbara Rods Platelet Estimate Hypogranular Platelets Clumped Platelets Giant Platelets Platelet Satelliting RBC Morphology Polychromasia Hypochromasia Poikilocytosis Basophilic Stippling Anisocytosis Microcytosis Macrocytosis Spherocytes Pappenheimer Bodies Sickle Cells Target Cells Tear Drop Cells Ovalocytes Stomatocytes Wharton-Berwick Bodies Echinocytes Acanthocytes (Spur) Rouleaux RBC Agglutinates Schistocytes RBC Morph Comment Sezary Cell PT (9.0-12.0) Seconds INR (0.9-1.1) APTT (21.0-31.0) Seconds PTT Ratio ABG pH (7.35-7.45) ABG pCO2 (35-46) mmHg ABG pO2 (80-95) mmHg ABG HCO3 (19-24) mmol/L ABG O2 Saturation (90-95) % ABG Base Excess (-9-1.8) mEq/L Ingel Test (Pos) Barometric Pressure mm/Hg Oxygen Given Sodium 138 (136-145) mmol/L Potassium 4.0 (3.5-5.1) mmol/L Chloride 104 (98-107) mmol/L Carbon Dioxide 19 L (21-32) mmol/L Anion Gap 15.0 H (3-11) BUN 72 H (7-18) mg/dl Creatinine 3.95 H (0.6-1.4) mg/dl Est Cr Clr Drug Dosing Not Reportable Est GFR ( Amer) 17.1 Est GFR (Non-Af Amer) 14.7 BUN/Creatinine Ratio 18.2 (10-20) Glucose 130 H (70-99) mg/dl Lactate (0.4-2.0) mmol/L Calcium 9.3 (8.5-10.1) mg/dl Magnesium 2.5 H (1.8-2.4) mg/dl Total Bilirubin 2.0 H (0.2-1) mg/dl AST 633 H (15-37) U/L ALT 246 H (12-78) U/L Alkaline Phosphatase 45 (45-117) U/L Ammonia < 10.0 L (11-32) umol/L CK-MB (CK-2) (0.5-3.6) ng/ml Troponin I 96.700 H* (0-0.045) ng/ml Total Protein 7.9 (6.4-8.2) gm/dl Albumin 2.8 L (3.4-5.0) gm/dl Globulin 5.1 H (2.5-4.0) gm/dl Albumin/Globulin Ratio 0.6 L (0.9-2) TSH 1.140 (0.300-4.500) uIu/ml Ethyl Alcohol mg/dL < 3.0 (0-3) mg/dl Influenza Type A Ag (Neg) Influenza Type B Ag (Neg) 08/11/19 08/11/19 08/11/19 Range/Units 13:30 13:43 14:25 WBC 9.01 RBC 4.44 L Hgb 13.3 L Hct 38.3 L MCV 86.3 MCH 30.0 MCHC 34.7 RDW Std Deviation 43.7 RDW Coeff of Nik 14.0 Plt Count 99 L MPV 11.2 H Immature Gran % (Auto) 1.0 Neut % (Auto) 87.4 Lymph % (Auto) 6.2 Metcalfe % (Auto) 5.3 Eos % (Auto) 0.0 Baso % (Auto) 0.1 Immature Gran # (Auto) 0.09 H Neut # (Auto) 7.87 H Lymph # (Auto) 0.56 L Metcalfe # (Auto) 0.48 Eos # (Auto) 0.00 Baso # (Auto) 0.01 Absolute Nucleated RBC Nucleated RBC % (auto) Neutrophils % (Manual) Band Neutrophils % Lymphocytes % (Manual) Prolymphocyte % Reactive Lymphs % (Man) Monocytes % (Manual) Eosinophils % (Manual) Basophils % (Manual) Metamyelocytes % (Man) Myelocytes % (Man) Promyelocytes % (Man) Blast Cells % (Manual) Plasma Cell % (Manual) Other Cells % Nucleated RBC % Neutrophils # (Manual) Band Neutrophils # Total Absolute Neuts Lymphocytes # (Manual) Prolymphocyte # Reactive Lymphs # Total Abs Lymphocytes Monocytes # (Manual) Eosinophils # (Manual) Basophils # (Manual) Metamyelocytes # (Man) Myelocytes # (Manual) Promyelocytes # (Man) Blast Cells # (Man) Plasma Cell # (Manual) Other Cells # Nucleated RBCs # (Man) Hypersegmented Neuts Hyposegmented Neuts Hypogranular Neuts Large Granular Lymphs # Lrg Granular Lymphs Hairy Cells Smudge Cells Toxic Granulation Toxic Vacuolation 2+ Dohle Bodies Barbara Rods Platelet Estimate Decreased L Hypogranular Platelets Clumped Platelets Giant Platelets 1+ Platelet Satelliting RBC Morphology Polychromasia Hypochromasia Poikilocytosis Basophilic Stippling Anisocytosis Microcytosis Macrocytosis Spherocytes Pappenheimer Bodies Sickle Cells Target Cells Tear Drop Cells Ovalocytes Stomatocytes Wharton-Berwick Bodies Echinocytes Acanthocytes (Spur) Rouleaux RBC Agglutinates Schistocytes RBC Morph Comment Sezary Cell PT (9.0-12.0) Seconds INR (0.9-1.1) APTT (21.0-31.0) Seconds PTT Ratio ABG pH 7.53 H* (7.35-7.45) ABG pCO2 23 L (35-46) mmHg ABG pO2 64 L (80-95) mmHg ABG HCO3 19 (19-24) mmol/L ABG O2 Saturation 93.0 (90-95) % ABG Base Excess -2.3 (-9-1.8) mEq/L Nigel Test Pos (Pos) Barometric Pressure 737.0 mm/Hg Oxygen Given ROOM AIR Sodium (136-145) mmol/L Potassium (3.5-5.1) mmol/L Chloride (98-107) mmol/L Carbon Dioxide (21-32) mmol/L Anion Gap (3-11) BUN (7-18) mg/dl Creatinine (0.6-1.4) mg/dl Est Cr Clr Drug Dosing Est GFR ( Amer) Est GFR (Non-Af Amer) BUN/Creatinine Ratio (10-20) Glucose (70-99) mg/dl Lactate 6.5 H* (0.4-2.0) mmol/L Calcium (8.5-10.1) mg/dl Magnesium (1.8-2.4) mg/dl Total Bilirubin (0.2-1) mg/dl AST (15-37) U/L ALT (12-78) U/L Alkaline Phosphatase (45-117) U/L Ammonia (11-32) umol/L CK-MB (CK-2) (0.5-3.6) ng/ml Troponin I (0-0.045) ng/ml Total Protein (6.4-8.2) gm/dl Albumin (3.4-5.0) gm/dl Globulin (2.5-4.0) gm/dl Albumin/Globulin Ratio (0.9-2) TSH (0.300-4.500) uIu/ml Ethyl Alcohol mg/dL (0-3) mg/dl Influenza Type A Ag (Neg) Influenza Type B Ag (Neg) 08/11/19 08/11/19 Range/Units 15:37 15:37 WBC RBC Hgb Hct MCV MCH MCHC RDW Std Deviation RDW Coeff of Nik Plt Count MPV Immature Gran % (Auto) Neut % (Auto) Lymph % (Auto) Metcalfe % (Auto) Eos % (Auto) Baso % (Auto) Immature Gran # (Auto) Neut # (Auto) Lymph # (Auto) Metcalfe # (Auto) Eos # (Auto) Baso # (Auto) Absolute Nucleated RBC Nucleated RBC % (auto) Neutrophils % (Manual) Band Neutrophils % Lymphocytes % (Manual) Prolymphocyte % Reactive Lymphs % (Man) Monocytes % (Manual) Eosinophils % (Manual) Basophils % (Manual) Metamyelocytes % (Man) Myelocytes % (Man) Promyelocytes % (Man) Blast Cells % (Manual) Plasma Cell % (Manual) Other Cells % Nucleated RBC % Neutrophils # (Manual) Band Neutrophils # Total Absolute Neuts Lymphocytes # (Manual) Prolymphocyte # Reactive Lymphs # Total Abs Lymphocytes Monocytes # (Manual) Eosinophils # (Manual) Basophils # (Manual) Metamyelocytes # (Man) Myelocytes # (Manual) Promyelocytes # (Man) Blast Cells # (Man) Plasma Cell # (Manual) Other Cells # Nucleated RBCs # (Man) Hypersegmented Neuts Hyposegmented Neuts Hypogranular Neuts Large Granular Lymphs # Lrg Granular Lymphs Hairy Cells Smudge Cells Toxic Granulation Toxic Vacuolation Dohle Bodies Barbara Rods Platelet Estimate Hypogranular Platelets Clumped Platelets Giant Platelets Platelet Satelliting RBC Morphology Polychromasia Hypochromasia Poikilocytosis Basophilic Stippling Anisocytosis Microcytosis Macrocytosis Spherocytes Pappenheimer Bodies Sickle Cells Target Cells Tear Drop Cells Ovalocytes Stomatocytes Wharton-Berwick Bodies Echinocytes Acanthocytes (Spur) Rouleaux RBC Agglutinates Schistocytes RBC Morph Comment Sezary Cell PT (9.0-12.0) Seconds INR (0.9-1.1) APTT (21.0-31.0) Seconds PTT Ratio ABG pH (7.35-7.45) ABG pCO2 (35-46) mmHg ABG pO2 (80-95) mmHg ABG HCO3 (19-24) mmol/L ABG O2 Saturation (90-95) % ABG Base Excess (-9-1.8) mEq/L Nigel Test (Pos) Barometric Pressure mm/Hg Oxygen Given Sodium (136-145) mmol/L Potassium (3.5-5.1) mmol/L Chloride (98-107) mmol/L Carbon Dioxide (21-32) mmol/L Anion Gap (3-11) BUN (7-18) mg/dl Creatinine (0.6-1.4) mg/dl Est Cr Clr Drug Dosing Est GFR ( Amer) Est GFR (Non-Af Amer) BUN/Creatinine Ratio (10-20) Glucose (70-99) mg/dl Lactate 6.3 H* (0.4-2.0) mmol/L Calcium (8.5-10.1) mg/dl Magnesium (1.8-2.4) mg/dl Total Bilirubin (0.2-1) mg/dl AST (15-37) U/L ALT (12-78) U/L Alkaline Phosphatase (45-117) U/L Ammonia (11-32) umol/L CK-MB (CK-2) 49.4 H (0.5-3.6) ng/ml Troponin I 123.000 H* (0-0.045) ng/ml Total Protein (6.4-8.2) gm/dl Albumin (3.4-5.0) gm/dl Globulin (2.5-4.0) gm/dl Albumin/Globulin Ratio (0.9-2) TSH (0.300-4.500) uIu/ml Ethyl Alcohol mg/dL (0-3) mg/dl Influenza Type A Ag (Neg) Influenza Type B Ag (Neg) Diagnostic Findings XR chest 1V portable CLINICAL HISTORY: sob COMPARISON STUDY: No previous studies for comparison. FINDINGS: The heart is enlarged. There is a retrocardiac opacity consistent with a hiatal hernia. There is an 8 cm right upper lobe airspace opacity. It is not possible to differentiate pneumonia from a pulmonary mass in the bases of the study. Clinical and radiographic follow-up is recommended.[ IMPRESSION: 8 cm right upper lobe airspace opacity, pneumonia versus pulmonary mass. Clinical and radiographic follow-up is recommended. ACT 112: Negative or not required by law. Electronically signed by: Xavi Downing M.D. 08/11/2019 12:58 PM Dictated: 08/11/19 1256 Transcribed: 08/11/[address] DOSE: 729.78 mGycm HISTORY: Altered mental status. TECHNIQUE: Multiaxial CT images of the head were performed without the use of intravenous contrast. Automated exposure control was utilized for this study. A dose lowering technique was utilized adhering to the principles of ALARA. Comparison: None. Findings: The paranasal sinuses and mastoid air cells are clear. The calvarium and skull base are intact. The ventricles and sulci are within normal limits. There is no mass, hematoma, midline shift, or acute infarct. Impression: No acute intracranial abnormality. ACT 112: Negative or not required by law. Electronically signed by: Sang Duffy M.D. 08/11/2019 2:56 PM Dictated: 08/11/19 1422 Transcribed: 08/11/[address] chest wo con CT DOSE: 787.65 mGycm HISTORY: Mass chest mass vs pneumonia TECHNIQUE: Multiaxial CT images of the chest were performed without contrast. A dose lowering technique was utilized adhering to the principles of ALARA. COMPARISON: Chest series 08/11/2019 FINDINGS: Consolidative infiltrative process versus mass right perihilar and right suprahilar region. This has maximum overall dimensions of 9.6 x 6.6 cm. Several air bronchograms are present. Medially peripheral to this consolidative process are small nodules primarily in the right middle lobe region measuring up to 2.3 cm. Patient with partial truncation of the right lower lobe mainstem bronchus. The left lung demonstrates mild left basilar atelectasis. Left lung otherwise is clear. No significant mediastinal or hilar adenopathy within limitations of the masslike changes previously described. Diagnostic considerations include consolidative infiltrate versus mass. May be a minimal infiltrative process superior segment right lower lobe as well. IMPRESSION: 1. Consolidative infiltrate versus mass right suprahilar and right perihilar region. 2. Additional satellite type nodules adjacent to the right hilum as well as in the superior segment right lower lobe. 3. Clinical options include bronchoscopy, versus a repeat CT scan following appropriate course of medical nonsurgical treatment. 4. Regardless, in any event this CT should be closely followed to ensure complete resolution. ACT 112: Negative or not required by law. The above report was generated using voice recognition software. It may contain grammatical, syntax or spelling errors. Electronically signed by: Raúl Feliz M.D. 08/11/2019 3:00 PM Dictated: 08/11/19 1456 Transcribed: 08/11/19 1456 ECG Additional Comments: The study shows ST at 118bpm, 1st degree AV block with DN=799, LBBB, CMO=775, CPw=198, no prior studies available for comparison Code Status & VTE Plan Code Status FULL VTE Prophylaxis Plan VTE Prophylaxis will be ordered: Yes Critical Care Time Critical Care Time: Yes Total Critical Care Time: 40 PG Care Time/CCT Total # of Minutes Spent Total Time Spent with Patient: Total time spent is greater than 50% in coordination of care (as documented) at patient's floor/unit and/or counseling patient: Critical Care Time: Yes Total Critical Care Time: 40 Coding Level of Care Code None Diagnoses Elevated troponin R79.89 AMS (altered mental status) R41.82 Altered mental status type: unspecified Acute renal failure N17.9 Acute renal failure type: unspecified Prostate cancer C61 Elevated lactic acid level R79.89 Complete left bundle branch block (LBBB) I44.7 Hypertension I10 Abnormal liver enzymes R74.8 Additional Codes Critical Care Time - Critical Care Time: Yes ([id number]) Time Spent (min) 40 (1) AMS (altered mental status) Altered mental status type: unspecified Qualified Code(s): R41.82 - Altered mental status, unspecified (2) Acute renal failure Acute renal failure type: unspecified Qualified Code(s): N17.9 - Acute kidney failure, unspecified
[2019-08-11] MEDS ORDERED: ETOMIDATE 2 MG/ML 20 ML VIAL IV ONE ×2 (16:50→17:54)
[2019-08-11] MEDS ORDERED: EPINEPHrine 2 MG in DEXTROSE 5% 250 ML IV SCH (16:52)
[2019-08-11] MEDS ORDERED: propofoL 1,000 MG/100 ML VIAL IV SCH (16:52)
[2019-08-11] MEDS ORDERED: NOREPINEPHRINE BITARTRATE 1 MG/ML 4 ML VIAL (CATH LAB USE ONLY) ONE (16:59)
[2019-08-11] MEDS ORDERED: DOBUTamine 500MG / 250ML D5W (CATH LAB USE ONLY) ONE (17:03)
[2019-08-11 17:15] VITALS: BP 83/52; PULSE 64
[2019-08-11] MEDS ORDERED: SODIUM BICARB 8.4% INJ 50 MEQ/50 ML SYR IV ONE (17:54)
[2019-08-11 18:05] LABS: iSTAT Arterial Blood Gas HCO3 12 meg/L (19-24); iSTAT Arterial Blood Gas pCO2 44 mmHg (35-46); iSTAT Arterial Blood Gas pH 7.04 (7.35-7.45); iSTAT Arterial Blood Gas pO2 54 mmHg (80-95); iSTAT Carbon Dioxide 13 mmol/L (24-31); iSTAT Hematocrit 26 % (42-52); iSTAT Hemoglobin 8.8 g/dl (14.0-18.0); iSTAT Potassium 4.2 mmol/L (3.3-5.0); iSTAT Sodium 143 mmol/L (135-144)
--- NOTE | 2019-08-11 18:17 | Cardiology Consultation ---
Date of Consultation August 11, 2019 Assessment & Plan (1) Cardiac arrest: (2) Acute myocardial infarction: (3) Cardiomyopathy: Update patient care: Given his tenuous circumstances with significant myocardial infarction with rising troponin, severely reduced LV systolic function, and evidence of and organ damage (mentation, kidney failure, and shock liver), findings concerning for cardiogenic shock in the setting of acute ID. The decision was to proceed with cardiac catheterization, understanding increased risk with poor renal function in an attempt to improve his hemodynamics given the severity of his illness. After he was intubated by the critical care team, he was transferred to the cardiac catheterization lab. He was transferred onto the screedman/laborer table. The telemetry leads became disconnected briefly and when checking for a pulse while changing over to the catheterization lab equipment, he was found to have no pulse. Chest compressions began. Epinephrine 1 mg IV was given. Dobutamine 10 mcg/kg/min was initiated given his recently discovered compromised LV systolic function. At 1 point, rhythm returned and appeared to be sinus tachycardia with a pulse. This maintained only briefly before having an episode of what appeared to be ventricular tachycardia for only a few seconds. He then appeared to have asystole, before defibrillation could be administered. He once again underwent CPR. He once again regained a perfusing rhythm with a pulse. Dr. Bañuelos then began the cardiac catheterization procedure. I remained present throughout the cardiac catheterization, but did not participate in the actual procedure. He developed heart block and underwent tra nsvenous pacemaker placement by Dr. Bañuelos. I did assist with chest compressions intermittently throughout the procedure. Please see Dr. Bañuelos cardiac catheterization report for full details of the procedure itself. ASSESSMENT/PLAN: 1. Cardiac arrest: He presented in what appears to be cardiogenic shock and quickly decompensated prior to cardiac catheterization with cardiac arrest occurring in the screedman/laborer before the procedure began. Please see cardiac catheterization note for full details of the code blue situation. 2. Cardiogenic shock: Has evidence of end-organ failure, likely due to severely reduced LV systolic function in the setting of acute ID. Dobutamine drip was initiated during the code blue situation. He had a perfusion blood pressure in the ER prior to intubation but quickly decompensated shortly thereafter. Epinephrine drip was initiated by the critical care team in the ER. Recommended cardiac catheterization as noted above. 3. Acute ID: Initial troponin was 96.7 and increased to 123 less than 3 hours later. Severely reduced LV systolic function as above. After his respiratory distress was stabilized in the ER with intubation, he was taken to the cardiac catheterization lab. He received aspirin 324 mg in the emergency department. 4. Disposition: Plan of care was discussed with Dr. Leroy of the admitting hospitalist service, Dr. Metcalf other critical care team, and Dr. Saldivar of the emergency department. Highly complex medical issues. 135 minutes of critical care time spent, including code blue situation that was intermittent prior to cardiac catheterization and also while Dr. Bañuelos performed cardiac catheterization. Thank you for allowing me to participate in the care of your patient. Please call for any other questions or concerns. Sincerely, Beto Mora M.D. History of Present Illness Reason for Consultation: Acute ID Requesting Physician: Dr. Haley Leroy Attending Physician: Dr. Haley Leroy History of Present Illness Mr. Kemp is a 69-year-old gentleman with a history significant for prostate cancer, hypertension, and hepatitis-C. Cardiology was consult by Dr. Leroy at approximately 4:00 p.m.. Echocardiogram was ordered urgently so that the echo could be done while at the bedside to help guide therapy. When I arrived at the bedside, the ICU critical care team, Dr. Metcalf, was also at the bedside preparing to intubate given his respiratory status. Unfortunately, he was unable to provide any history. He was awake but was not conversing due to mental status change. He is incarcerated at [facility], and thus was accompanied by 2 guards. I was informed that he is typically active and very conversive. According to records from his correctional facility, he has not been able to move all weekend. Unable to walk, stand or sit by himself. When asked if he had any chest pain or shortness of breath, he did not respond. His eyes were open but he was quite tachypneic. Labs were obtained from his correctional facility from 07/22/2019 and he was found to have reasonable renal function with a creatinine of 1.09. His AST and ALT were 35 and 56 respectively. Today he was found to be in acute renal failure with a creatinine of 3.95, shock liver with elevated transaminase levels, and rising troponins of 96.7 noted at 1:19 p.m. with repeat troponin at 3:37 p.m. increasing to 123. Review of systems: As above and otherwise unobtainable due to patient's mental status. Family history: Unobtainable from the patient due to mental status. Social history: Unobtainable due to patient's mental status. He resides at [facility]. Allergies Allergy/AdvReac Type Severity Reaction Status Date / Time No Known Allergies Allergy Verified 08/11/19 12:51 Home Medications Home Medications Medication Instructions Recorded Confirmed Type tamsulosin 0.4 mg PO HS 08/11/19 08/11/19 History Patient History Medical History (Updated 08/11/19 @ 18:30 by Jonathan Mora MD) Elevated PSA (Acute) Hepatitis C (Acute) Hypertension Prostate cancer (Acute) Surgical History H/O foot surgery (Acute) Let tarun / re set arches 1960 `s H/O prostate biopsy (Acute) BX 03-06-2019 Family History Mother , in her 80 ` s Natural Father , in his 80` s Natural Brother No problems noted. Brother , age 60 `s Hypertension Coronary heart disease Brother , age 30 ` s Gunshot wound Sister No problems noted. Sister No problems noted. Sister No problems noted. Sister , in her 20 ` s Gunshot wound Social History Preferred Language: Maltese Communication Ability: Effective Visual Impairment: No Limitations Hearing Ability: Normal Acid Bath Mixer Required: No Beliefs That Will Affect Care: None Current Living Situation: Other Current Living Situation Comment: Inmate at [facility] Longterm current occupational status: unemployed Feels Safe at Home: Yes Smoking Status: Never smoker Physical Exam Physical Exam: Gen.: Respiratory distress/tachypneic. Awake but not answering questions. HEENT: Pupils equal and round. Neck: Could not assess JVD. No bruits. Normal carotid upstrokes bilaterally. Cardiac: No ventricular heave. Regular. Normal S1-S2. No audible murmurs, rubs, or gallops. Pulmonary: Clear to auscultation bilaterally on anterior auscultation. Abdomen: Soft, nondistended, with hypo-active bowel sounds. No bruits noted. Extremities: 1+ radial pulses bilaterally. Trace bilateral lower extremity edema. No cyanosis. No palpable cords. Results & Data ([facility]) Vital Signs (Past 12 Hours) Vital Signs Temp Pulse Pulse Resp BP BP 08/11/19 17:22 25 H 08/11/19 16:50 64 25 H 08/11/19 16:40 85 34 H 08/11/19 16:35 91 H 20 83/52 L 08/11/19 16:30 100 H 38 H 08/11/19 16:20 101 H 33 H 08/11/19 16:10 108 H 53 H 08/11/19 16:01 112 H 47 H 101/70 08/11/19 16:00 114 H 46 H 08/11/19 15:50 105 H 51 H 08/11/19 15:40 111 H 58 H 08/11/19 15:31 112 H 52 H 08/11/19 15:30 112 H 52 H 108/76 08/11/19 15:20 104 H 49 H 08/11/19 15:10 112 H 46 H 08/11/19 15:01 111 H 51 H 08/11/19 15:00 112 H 55 H 103/70 08/11/19 14:56 113 H 53 H 08/11/19 14:55 112 H 50 H 97/64 L 08/11/19 14:30 113 H 45 H 08/11/19 14:20 109 H 53 H 08/11/19 14:17 112 H 45 H 08/11/19 14:02 102 H 24 115/74 08/11/19 14:00 111 H 54 H 08/11/19 13:59 102 H 48 H 08/11/19 13:54 112 H 56 H 115/74 08/11/19 12:41 37.3 C 109 H 48 H 125/75 Laboratory Results Laboratory Results - last 24 hr 08/11/19 08/11/19 08/11/19 12:45 13:19 13:19 WBC Cancelled RBC Cancelled Hgb Cancelled POC Hgb Hct Cancelled POC Hct MCV Cancelled MCH Cancelled MCHC Cancelled RDW Std Deviation Cancelled RDW Coeff of Nik Cancelled Plt Count Cancelled MPV Cancelled Immature Gran % (Auto) Cancelled Neut % (Auto) Cancelled Lymph % (Auto) Cancelled [place] % (Auto) Cancelled Eos % (Auto) Cancelled Baso % (Auto) Cancelled Immature Gran # (Auto) Cancelled Neut # (Auto) Cancelled Lymph # (Auto) Cancelled [place] # (Auto) Cancelled Eos # (Auto) Cancelled Baso # (Auto) Cancelled Absolute Nucleated RBC Cancelled Nucleated RBC % (auto) Cancelled Neutrophils % (Manual) Cancelled Band Neutrophils % Cancelled Lymphocytes % (Manual) Cancelled Prolymphocyte % Cancelled Reactive Lymphs % (Man) Cancelled Monocytes % (Manual) Cancelled Eosinophils % (Manual) Cancelled Basophils % (Manual) Cancelled Metamyelocytes % (Man) Cancelled Myelocytes % (Man) Cancelled Promyelocytes % (Man) Cancelled Blast Cells % (Manual) Cancelled Plasma Cell % (Manual) Cancelled Other Cells % Cancelled Nucleated RBC % Cancelled Neutrophils # (Manual) Cancelled Band Neutrophils # Cancelled Total Absolute Neuts Cancelled Lymphocytes # (Manual) Cancelled Prolymphocyte # Cancelled Reactive Lymphs # Cancelled Total Abs Lymphocytes Cancelled Monocytes # (Manual) Cancelled Eosinophils # (Manual) Cancelled Basophils # (Manual) Cancelled Metamyelocytes # (Man) Cancelled Myelocytes # (Manual) Cancelled Promyelocytes # (Man) Cancelled Blast Cells # (Man) Cancelled Plasma Cell # (Manual) Cancelled Other Cells # Cancelled Nucleated RBCs # (Man) Cancelled Hypersegmented Neuts Cancelled Hyposegmented Neuts Cancelled Hypogranular Neuts Cancelled Large Granular Lymphs Cancelled # Lrg Granular Lymphs Cancelled Hairy Cells Cancelled Smudge Cells Cancelled Toxic Granulation Cancelled Toxic Vacuolation Cancelled Dohle Bodies Cancelled Barbara Rods Cancelled Platelet Estimate Cancelled Hypogranular Platelets Cancelled Clumped Platelets Cancelled Giant Platelets Cancelled Platelet Satelliting Cancelled RBC Morphology Cancelled Polychromasia Cancelled Hypochromasia Cancelled Poikilocytosis Cancelled Basophilic Stippling Cancelled Anisocytosis Cancelled Microcytosis Cancelled Macrocytosis Cancelled Spherocytes Cancelled Pappenheimer Bodies Cancelled Sickle Cells Cancelled Target Cells Cancelled Tear Drop Cells Cancelled Ovalocytes Cancelled Stomatocytes Cancelled [place] Bodies Cancelled Echinocytes Cancelled Acanthocytes (Spur) Cancelled Rouleaux Cancelled RBC Agglutinates Cancelled Schistocytes Cancelled RBC Morph Comment Cancelled Sezary Cell Cancelled PT 14.6 H INR 1.5 H APTT 29.0 PTT Ratio 1.1 Activ Coag Time Kaolin POC pH POC pCO2 POC pO2 POC HCO3 POC Total CO2 POC Base Excess ABG pH ABG pCO2 ABG pO2 ABG HCO3 ABG O2 Saturation ABG Base Excess Nigel Test Barometric Pressure Oxygen Given POC Sodium Sodium POC Potassium Potassium Chloride Carbon Dioxide Anion Gap BUN Creatinine Est Cr Clr Drug Dosing Est GFR ( Amer) Est GFR (Non-Af Amer) BUN/Creatinine Ratio Glucose Lactate Calcium Magnesium Total Bilirubin AST ALT Alkaline Phosphatase Ammonia Total Creatine Kinase CK-MB (CK-2) CK/CKMB % Calc Troponin I Total Protein Albumin Globulin Albumin/Globulin Ratio TSH Ethyl Alcohol mg/dL Influenza Type A Ag Neg for Influ A Influenza Type B Ag Neg for Influ B 08/11/19 08/11/19 08/11/19 13:19 13:19 13:30 WBC RBC Hgb POC Hgb Hct POC Hct MCV MCH MCHC RDW Std Deviation RDW Coeff of Nik Plt Count MPV Immature Gran % (Auto) Neut % (Auto) Lymph % (Auto) [place] % (Auto) Eos % (Auto) Baso % (Auto) Immature Gran # (Auto) Neut # (Auto) Lymph # (Auto) [place] # (Auto) Eos # (Auto) Baso # (Auto) Absolute Nucleated RBC Nucleated RBC % (auto) Neutrophils % (Manual) Band Neutrophils % Lymphocytes % (Manual) Prolymphocyte % Reactive Lymphs % (Man) Monocytes % (Manual) Eosinophils % (Manual) Basophils % (Manual) Metamyelocytes % (Man) Myelocytes % (Man) Promyelocytes % (Man) Blast Cells % (Manual) Plasma Cell % (Manual) Other Cells % Nucleated RBC % Neutrophils # (Manual) Band Neutrophils # Total Absolute Neuts Lymphocytes # (Manual) Prolymphocyte # Reactive Lymphs # Total Abs Lymphocytes Monocytes # (Manual) Eosinophils # (Manual) Basophils # (Manual) Metamyelocytes # (Man) Myelocytes # (Manual) Promyelocytes # (Man) Blast Cells # (Man) Plasma Cell # (Manual) Other Cells # Nucleated RBCs # (Man) Hypersegmented Neuts Hyposegmented Neuts Hypogranular Neuts Large Granular Lymphs # Lrg Granular Lymphs Hairy Cells Smudge Cells Toxic Granulation Toxic Vacuolation Dohle Bodies Barbara Rods Platelet Estimate Hypogranular Platelets Clumped Platelets Giant Platelets Platelet Satelliting RBC Morphology Polychromasia Hypochromasia Poikilocytosis Basophilic Stippling Anisocytosis Microcytosis Macrocytosis Spherocytes Pappenheimer Bodies Sickle Cells Target Cells Tear Drop Cells Ovalocytes Stomatocytes [place]arton[place] Bodies Echinocytes Acanthocytes (Spur) Rouleaux RBC Agglutinates Schistocytes RBC Morph Comment Sezary Cell PT INR APTT PTT Ratio Activ Coag Time Kaolin POC pH POC pCO2 POC pO2 POC HCO3 POC Total CO2 POC Base Excess ABG pH ABG pCO2 ABG pO2 ABG HCO3 ABG O2 Saturation ABG Base Excess Nigel Test Barometric Pressure Oxygen Given POC Sodium Sodium 138 POC Potassium Potassium 4.0 Chloride 104 Carbon Dioxide 19 L Anion Gap 15.0 H BUN 72 H Creatinine 3.95 H Est Cr Clr Drug Dosing Not Reportable Est GFR ( Amer) 17.1 Est GFR (Non-Af Amer) 14.7 BUN/Creatinine Ratio 18.2 Glucose 130 H Lactate Calcium 9.3 Magnesium 2.5 H Total Bilirubin 2.0 H AST 633 H ALT 246 H Alkaline Phosphatase 45 Ammonia < 10.0 L Total Creatine Kinase CK-MB (CK-2) CK/CKMB % Calc Troponin I 96.700 H* Total Protein 7.9 Albumin 2.8 L Globulin 5.1 H Albumin/Globulin Ratio 0.6 L TSH 1.140 Ethyl Alcohol mg/dL < 3.0 Influenza Type A Ag Influenza Type B Ag 08/11/19 08/11/19 08/11/19 13:30 13:43 14:25 WBC 9.01 RBC 4.44 L Hgb 13.3 L POC Hgb Hct 38.3 L POC Hct MCV 86.3 MCH 30.0 MCHC 34.7 RDW Std Deviation 43.7 RDW Coeff of Nik 14.0 Plt Count 99 L MPV 11.2 H Immature Gran % (Auto) 1.0 Neut % (Auto) 87.4 Lymph % (Auto) 6.2 [place] % (Auto) 5.3 Eos % (Auto) 0.0 Baso % (Auto) 0.1 Immature Gran # (Auto) 0.09 H Neut # (Auto) 7.87 H Lymph # (Auto) 0.56 L [place] # (Auto) 0.48 Eos # (Auto) 0.00 Baso # (Auto) 0.01 Absolute Nucleated RBC Nucleated RBC % (auto) Neutrophils % (Manual) Band Neutrophils % Lymphocytes % (Manual) Prolymphocyte % Reactive Lymphs % (Man) Monocytes % (Manual) Eosinophils % (Manual) Basophils % (Manual) Metamyelocytes % (Man) Myelocytes % (Man) Promyelocytes % (Man) Blast Cells % (Manual) Plasma Cell % (Manual) Other Cells % Nucleated RBC % Neutrophils # (Manual) Band Neutrophils # Total Absolute Neuts Lymphocytes # (Manual) Prolymphocyte # Reactive Lymphs # Total Abs Lymphocytes Monocytes # (Manual) Eosinophils # (Manual) Basophils # (Manual) Metamyelocytes # (Man) Myelocytes # (Manual) Promyelocytes # (Man) Blast Cells # (Man) Plasma Cell # (Manual) Other Cells # Nucleated RBCs # (Man) Hypersegmented Neuts Hyposegmented Neuts Hypogranular Neuts Large Granular Lymphs # Lrg Granular Lymphs Hairy Cells Smudge Cells Toxic Granulation Toxic Vacuolation 2+ Dohle Bodies Barbara Rods Platelet Estimate Decreased L Hypogranular Platelets Clumped Platelets Giant Platelets 1+ Platelet Satelliting RBC Morphology Polychromasia Hypochromasia Poikilocytosis Basophilic Stippling Anisocytosis Microcytosis Macrocytosis Spherocytes Pappenheimer Bodies Sickle Cells Target Cells Tear Drop Cells Ovalocytes Stomatocytes Wharton-[place] Bodies Echinocytes Acanthocytes (Spur) Rouleaux RBC Agglutinates Schistocytes RBC Morph Comment Sezary Cell PT INR APTT PTT Ratio Activ Coag Time Kaolin POC pH POC pCO2 POC pO2 POC HCO3 POC Total CO2 POC Base Excess ABG pH 7.53 H* ABG pCO2 23 L ABG pO2 64 L ABG HCO3 19 ABG O2 Saturation 93.0 ABG Base Excess -2.3 Nigel Test Pos Barometric Pressure 737.0 Oxygen Given ROOM AIR POC Sodium Sodium POC Potassium Potassium Chloride Carbon Dioxide Anion Gap BUN Creatinine Est Cr Clr Drug Dosing Est GFR ( Amer) Est GFR (Non-Af Amer) BUN/Creatinine Ratio Glucose Lactate 6.5 H* Calcium Magnesium Total Bilirubin AST ALT Alkaline Phosphatase Ammonia Total Creatine Kinase CK-MB (CK-2) CK/CKMB % Calc Troponin I Total Protein Albumin Globulin Albumin/Globulin Ratio TSH Ethyl Alcohol mg/dL Influenza Type A Ag Influenza Type B Ag 08/11/19 08/11/19 08/11/19 15:37 15:37 17:28 WBC RBC Hgb POC Hgb Hct POC Hct MCV MCH MCHC RDW Std Deviation RDW Coeff of Nik Plt Count MPV Immature Gran % (Auto) Neut % (Auto) Lymph % (Auto) [place] % (Auto) Eos % (Auto) Baso % (Auto) Immature Gran # (Auto) Neut # (Auto) Lymph # (Auto) [place] # (Auto) Eos # (Auto) Baso # (Auto) Absolute Nucleated RBC Nucleated RBC % (auto) Neutrophils % (Manual) Band Neutrophils % Lymphocytes % (Manual) Prolymphocyte % Reactive Lymphs % (Man) Monocytes % (Manual) Eosinophils % (Manual) Basophils % (Manual) Metamyelocytes % (Man) Myelocytes % (Man) Promyelocytes % (Man) Blast Cells % (Manual) Plasma Cell % (Manual) Other Cells % Nucleated RBC % Neutrophils # (Manual) Band Neutrophils # Total Absolute Neuts Lymphocytes # (Manual) Prolymphocyte # Reactive Lymphs # Total Abs Lymphocytes Monocytes # (Manual) Eosinophils # (Manual) Basophils # (Manual) Metamyelocytes # (Man) Myelocytes # (Manual) Promyelocytes # (Man) Blast Cells # (Man) Plasma Cell # (Manual) Other Cells # Nucleated RBCs # (Man) Hypersegmented Neuts Hyposegmented Neuts Hypogranular Neuts Large Granular Lymphs # Lrg Granular Lymphs Hairy Cells Smudge Cells Toxic Granulation Toxic Vacuolation Dohle Bodies Barbara Rods Platelet Estimate Hypogranular Platelets Clumped Platelets Giant Platelets Platelet Satelliting RBC Morphology Polychromasia Hypochromasia Poikilocytosis Basophilic Stippling Anisocytosis Microcytosis Macrocytosis Spherocytes Pappenheimer Bodies Sickle Cells Target Cells Tear Drop Cells Ovalocytes Stomatocytes Wharton-[place] Bodies Echinocytes Acanthocytes (Spur) Rouleaux RBC Agglutinates Schistocytes RBC Morph Comment Sezary Cell PT INR APTT PTT Ratio Activ Coag Time Kaolin 345 H POC pH POC pCO2 POC pO2 POC HCO3 POC Total CO2 POC Base Excess ABG pH ABG pCO2 ABG pO2 ABG HCO3 ABG O2 Saturation ABG Base Excess Nigel Test Barometric Pressure Oxygen Given POC Sodium Sodium POC Potassium Potassium Chloride Carbon Dioxide Anion Gap BUN Creatinine Est Cr Clr Drug Dosing Est GFR ( Amer) Est GFR (Non-Af Amer) BUN/Creatinine Ratio Glucose Lactate 6.3 H* Calcium Magnesium Total Bilirubin AST ALT Alkaline Phosphatase Ammonia Total Creatine Kinase 54666 H CK-MB (CK-2) 49.4 H CK/CKMB % Calc 0.2 Troponin I 123.000 H* Total Protein Albumin Globulin Albumin/Globulin Ratio TSH Ethyl Alcohol mg/dL Influenza Type A Ag Influenza Type B Ag 08/11/19 17:47 WBC RBC Hgb POC Hgb 8.8 L Hct POC Hct 26 L MCV MCH MCHC RDW Std Deviation RDW Coeff of Nik Plt Count MPV Immature Gran % (Auto) Neut % (Auto) Lymph % (Auto) [place] % (Auto) Eos % (Auto) Baso % (Auto) Immature Gran # (Auto) Neut # (Auto) Lymph # (Auto) [place] # (Auto) Eos # (Auto) Baso # (Auto) Absolute Nucleated RBC Nucleated RBC % (auto) Neutrophils % (Manual) Band Neutrophils % Lymphocytes % (Manual) Prolymphocyte % Reactive Lymphs % (Man) Monocytes % (Manual) Eosinophils % (Manual) Basophils % (Manual) Metamyelocytes % (Man) Myelocytes % (Man) Promyelocytes % (Man) Blast Cells % (Manual) Plasma Cell % (Manual) Other Cells % Nucleated RBC % Neutrophils # (Manual) Band Neutrophils # Total Absolute Neuts Lymphocytes # (Manual) Prolymphocyte # Reactive Lymphs # Total Abs Lymphocytes Monocytes # (Manual) Eosinophils # (Manual) Basophils # (Manual) Metamyelocytes # (Man) Myelocytes # (Manual) Promyelocytes # (Man) Blast Cells # (Man) Plasma Cell # (Manual) Other Cells # Nucleated RBCs # (Man) Hypersegmented Neuts Hyposegmented Neuts Hypogranular Neuts Large Granular Lymphs # Lrg Granular Lymphs Hairy Cells Smudge Cells Toxic Granulation Toxic Vacuolation Dohle Bodies Barbara Rods Platelet Estimate Hypogranular Platelets Clumped Platelets Giant Platelets Platelet Satelliting RBC Morphology Polychromasia Hypochromasia Poikilocytosis Basophilic Stippling Anisocytosis Microcytosis Macrocytosis Spherocytes Pappenheimer Bodies Sickle Cells Target Cells Tear Drop Cells Ovalocytes Stomatocytes Wharton-[place] Bodies Echinocytes Acanthocytes (Spur) Rouleaux RBC Agglutinates Schistocytes RBC Morph Comment Sezary Cell PT INR APTT PTT Ratio Activ Coag Time Kaolin POC pH 7.04 L* POC pCO2 44 POC pO2 54 L POC HCO3 12 L POC Total CO2 13 L POC Base Excess -19.0 L ABG pH ABG pCO2 ABG pO2 ABG HCO3 ABG O2 Saturation ABG Base Excess Nigel Test Barometric Pressure Oxygen Given POC Sodium 143 Sodium POC Potassium 4.2 Potassium Chloride Carbon Dioxide Anion Gap BUN Creatinine Est Cr Clr Drug Dosing Est GFR ( Amer) Est GFR (Non-Af Amer) BUN/Creatinine Ratio Glucose Lactate Calcium Magnesium Total Bilirubin AST ALT Alkaline Phosphatase Ammonia Total Creatine Kinase CK-MB (CK-2) CK/CKMB % Calc Troponin I Total Protein Albumin Globulin Albumin/Globulin Ratio TSH Ethyl Alcohol mg/dL Influenza Type A Ag Influenza Type B Ag Diagnostic Findings ECGs personally reviewed: ECG 08/11/2019 at 12:20 p.m.: Sinus tachycardia 118 bpm. LBBB. No previous ECG for comparison. ECG 08/11/2019 at 3:26 p.m.: Sinus tachycardia 113 bpm. LBBB. Echo images personally reviewed at the bedside: Preliminary review demonstrated severely reduced LV systolic function without severe valvular abnormalities. Full report to follow. CT chest 08/11/2019: Consolidative infiltrate versus mass of the right suprahilar and right perihilar region measuring 9.6 x 6.6 cm. Additional satellite type nodules adjacent to the right hilum and superior segment of the right lower lobe; per Radiology. Significant multivessel coronary calcifi cations also noted on personal review of the images. Medications Administered Current Inpatient Medications Propofol (Diprivan) 1,000 mg in 100 mls @ 3.204 mls/hr IV .Q24H [facility]; Protocol Stop: 08/14/19 16:51 Last Admin: 08/11/19 17:03 Dose: 5 mcg/kg/min, 3.2 mls/hr Documented by: Epinephrine HCl 4 mg/ Dextrose 254 mls @ 20.345 mls/hr IV .[id number] [facility]; Protocol Stop: 09/10/19 16:51 Epinephrine HCl 2 mg/ Dextrose 252 mls @ 40.37 mls/hr IV .[id number] [facility]; Protocol Stop: 08/11/19 23:06 Last Admin: 08/11/19 17:06 Dose: 0.05 mcg/kg/min, 40.4 mls/hr Documented by: Miscellaneous Information (Consult) 1 ea N/A UD PRN PRN Reason: Consult Stop: 09/10/19 15:28 PG Care Time/CCT Total # of Minutes Spent Total Time Spent with Patient: Total time spent is greater than 50% in coordination of care (as documented) at patient's floor/unit and/or counseling patient: Critical Care Time: Yes Total Critical Care Time: 135 Coding Level of Care Code None Diagnoses Cardiac arrest I46.9 Acute myocardial infarction I21.9 Cardiomyopathy I42.9 Additional Codes Critical Care Time - Critical Care Time: Yes ([id number])
--- NOTE | 2019-08-11 18:24 | Procedure Note ---
Procedure Note Date of Service August 11, 2019 INTUBATION PROCEDURE NOTE: Provider: Sanket Metcalf MD A time-out was completed verifying correct patient, procedure, site, positioning. Patient was evaluated and required intubation for respiratory failure. Sedative agent used: Propofol 10 mL's, etomidate 40 mg Paralysis agent used: None Emergent consent was implied given patients rapidly declining clinical status and need for airway protection. The patient was prepared in the appropriate fashion. Sedation was achieved uti lizing etomidate. The patient was easily ventilated using [id number] to achieve adequate oxygenation. Direct laryngoscopy was performed with a MAC 3 blade. After repositioning the patient, a grade 1 view was obtained. A 8.0 endotracheal tube was placed under direct visualization to 24 cm at the lip. The stylette was removed and balloon was inflated with 10mL of air. Appropriate Colorimetric change was appreciated. Bilateral breath sounds were heard without air sounds in the abdomen. Tube was verified to be in good position with fluoroscopy in the Auto Detailer Coding CPT Codes Resuscitation - Resuscitation: 15045 Endotracheal Intubation, emergency ([id number]) [facility] [place]arges) Resuscitation Resuscitation: 81320 Endotracheal Intubation, emergency
--- NOTE | 2019-08-11 18:28 | Critical Care Consultation ---
Date of Consultation August 11, 2019 Assessment & Plan (1) Cardiomyopathy: Impression: 69-year-old male presenting with reduced ejection fraction, left bundle branch of unclear duration, markedly elevated troponin, cardiogenic shock, acute renal failure, transaminitis, and lactic acidosis. He also has a right upper lobe lung lesion concerning for potential malignancy versus infection. Hospital course: The patient was intubated and initiated on epinephrine in the emergency room. He was transferred to the C[facility]. I presented to the [facility] shortly thereafter. The patient apparently had suffered a cardiac arrest. He was undergoing CPR in the [facility]. He apparently had had a run of V. tach. We were able to get return of spontaneous circulation for period of time. He underwent cardiac catheterization and during the course of that procedure again lost pulses and required CPR for over 50 minutes. They were able to place an impeller which was able to maintain a blood pressure of around 40. Pacing wire was also placed. Please see Dr. Bañuelos's notes. Despite these interventions, the patient was unable to maintain a perfusing blood pressure or stable rhythm. Eventually angiography was performed. Please refer to those notes as well. The patient remained hemodynamically unstable with blood pressure only being maintained with the impeller device. After extensive and aggressive interventions, I met with Dr. Bañuelos, Dr. Mora at the bedside. We reviewed all options. It did not appear that the patient would be a candidate for ECMO and he was not stable to consider transfer to a tertiary care facility. I felt that we had performed all available interventions on this patient and outcome was going to be universally poor. Based on those findings we discontinued the impeller device and the pacing wire and the patient rapidly past. For additional details regarding this hospitalization the reader is referred to the electronic medical record. (2) Acute myocardial infarction: (3) Cardiac arrest: (4) Abnormal liver enzymes: (5) Acute renal failure: History of Present Illness Attending Physician: Felicitas Leroy DO History of Present Illness Asked by the hospitalist service to assist in evaluation management of this pa tient. History is obtained from review the electronic medical record and discussion with the admitting hospitalist. The patient is obtunded and cannot provide any significant meaningful history. Patient is a 69-year-old male with history of prostate cancer currently undergoing radiation therapy. He is incarcerated. He was brought to the emergency room today due to feeling poorly and generalized lethargy. He was evaluated in the emergency room and found to have an EKG with a left bundle bra nch of unclear duration. His initial troponin was elevated in the 90s. His x- ray showed a masslike consolidation in the right upper lobe confirmed on CT scan. He was administered Zosyn. I presented to the emergency room to evaluate the patient soon as I was contacted by the hospitalist. The patient was obtunded and unable to maintain eye contact or answer questions appropriately. His blood gas demonstrated metabolic acidosis. Review of his labs showed an elevated lactate with acute renal failure and shock liver. I had advised the hospitalist to immediately contact cardiology as I was concerned this patient may be in cardiogenic shock and would require urgent cardiac catheterization. It became clear on my assessment that the patient required mechanical ventilation. Cardiology pres ented at the bedside shortly thereafter and a stat echocardiogram was performed demonstrating reduced ejection fraction. Decision was made to take the patient urgently to the C[facility] Operator [facility]. I performed endotracheal intubation and the patient was transferred to the C[facility]. Please see events below. Allergies Allergy/AdvReac Type Severity Reaction Status Date / Time No Known Allergies Allergy Verified 08/11/19 12:51 Home Medications Home Medications Medication Instructions Recorded Confirmed Type tamsulosin 0.4 mg PO HS 08/11/19 08/11/19 History Patient History Medical History (Updated 08/11/19 @ 18:30 by Jonathan Mora MD) Elevated PSA (Acute) Hepatitis C (Acute) Hypertension Prostate cancer (Acute) Surgical History H/O foot surgery (Acute) Let traun / re set arches 1959 `s H/O prostate biopsy (Acute) BX 03-06-2019 Family History Mother , in her 80 ` s Natural Father , in his 80` s Natural Brother No problems noted. Brother , age 60 `s Hypertension Coronary heart disease Brother , age 30 ` s Gunshot wound Sister No problems noted. Sister No problems noted. Sister No problems noted. Sister , in her 20 ` s Gunshot wound Social History Preferred Language: Lithuanian Communication Ability: Effective Visual Impairment: No Limitations Hearing Ability: Normal Directory Carrier Required: No Beliefs That Will Affect Care: None Current Living Situation: Other Current Living Situation Comment: Inmate at [facility] current occupational status: unemployed Feels Safe at Home: Yes Smoking Status: Never smoker Review of Systems Review of Systems: Unobtainable due to reduced consciousness Results & Data ([facility]) Vital Signs (Past 12 Hours) Vital Signs Temp Pulse Pulse Resp BP BP 08/11/19 17:22 25 H 08/11/19 16:50 64 25 H 08/11/19 16:40 85 34 H 08/11/19 16:35 91 H 20 83/52 L 08/11/19 16:30 100 H 38 H 08/11/19 16:20 101 H 33 H 08/11/19 16:10 108 H 53 H 08/11/19 16:01 112 H 47 H 101/70 08/11/19 16:00 114 H 46 H 08/11/19 15:50 105 H 51 H 08/11/19 15:40 111 H 58 H 08/11/19 15:31 112 H 52 H 08/11/19 15:30 112 H 52 H 108/76 08/11/19 15:20 104 H 49 H 08/11/19 15:10 112 H 46 H 08/11/19 15:01 111 H 51 H 08/11/19 15:00 112 H 55 H 103/70 08/11/19 14:56 113 H 53 H 08/11/19 14:55 112 H 50 H 97/64 L 08/11/19 14:30 113 H 45 H 08/11/19 14:20 109 H 53 H 08/11/19 14:17 112 H 45 H 08/11/19 14:02 102 H 24 115/74 08/11/19 14:00 111 H 54 H 08/11/19 13:59 102 H 48 H 08/11/19 13:54 112 H 56 H 115/74 08/11/19 12:41 37.3 C 109 H 48 H 125/75 Laboratory Results 08/11/19 14:25 08/11/19 13:19 08/11/19 13:43 ABG pH 7.53 H* ABG pCO2 23 L ABG pO2 64 L ABG HCO3 19 ABG O2 Saturation 93.0 ABG Base Excess -2.3 Diagnostic Findings Chest x-ray and CT scan were independently reviewed. There is a masslike consolidative change noted within the right upper lobe. Coding Level of Care Code Critical Care 1st 30-74 mins Diagnoses Cardiomyopathy I42.9 Acute myocardial infarction I21.9 Cardiac arrest I46.9 Abnormal liver enzymes R74.8 Acute renal failure N17.9 Acute renal failure type: unspecified Time Spent (min) 55 (1) Acute renal failure Acute renal failure type: unspecified Qualified Code(s): N17.9 - Acute kidney failure, unspecified
--- NOTE | 2019-08-11 18:44 | Cardiac Catheterization ---
[facility] Data: Executive Administrative Asst Cardiac Status Clinical evaluation leading to the procedure CAD Presenation: Non STEMI Anginal Classification: CCS IV Heart Failure: Yes Cardiogenic Shock within 24 Hours: Yes Cardiac Arrest within 24 Hours: Yes Imaging Studies Past 6 Months: Yes Stress Studies Past 6 Months: No Diagnostic Physicians Name: José Antonio Bañuelos MD Closure Device Percutaneous Entry Location: Femoral Recommendations: None Intraprocedure Events Significant Disection: No Perforation: No Cardiac Cath Procedure Full Procedure Date August 11, 2019 Pre-Procedure Diagnosis Pre-Procedure Diagnosis: Acute Coronary Syndrome AUC Score AUC Score: 9 Post-Procedure Diagnosis Post-Procedure Diagnosis: Severe CAD Procedure(s) Performed Procedure(s) Performed: Coronary Angiography, Left Heart Cath, Temporary Pacemaker, Ultrasound Guided Vascular Access, CPR, Defibrillation, Femoral Artery Angiography and Procedure (Impella catheter placement) Real Estate Professor José Antonio Bañuelos MD Gas Leak Inspector(s) Morgan Estimated Blood Loss Estimated Blood Loss: 20 Medication(s) Medication(s): Dopamine, Epinephrine, Fentanyl, Heparin and Versed Summary of Findings Indication: Acute coronary syndrome/Heart Alert 69 year old man with prostate cancer (not none to be metastatic, being treated with curative radiation) here with lethargy and confusion. On presentation hypertensive but with new KELL, transaminitis and elevated lactate >6. Chest alem ging remarkable for lung mass vs PNA. Elevated troponin to 97, LBBB not know to be old, severe LV dysfunction with EF 20%. Borderline hypotension in ED before intubated for respiratory failure/airway protection. Upon arrival to pathology laboratory aides teacher arrested with ROSC after epi x2 and chest compressions. Access: 6 Fr right QUALITY ASSURANCE NURSE, 6 Fr right CFV, 14 FR left QUALITY ASSURANCE NURSE Catheters: EBU 3.5 guide, JR4, pigtail Findings: LM -heavily calcified, 50% ostial disease LAD -heavily calcified, 50 to 60% proximal disease, 95% mid segment (likely acute culprit), distal vessel wraps around apex with LACEY II-III flow Circumflex -heavily calcified, 80% proximal disease RCA -calcified, small vessel, dominant, 95% proximal stenosis. Subtotally occluded distal vessel prior to PDA. PDA/PLB fill via collaterals from the left system -- PCI -- Antithrombotic therapy: Heparin to ACT greater than 250 Procedure: After ROSC right QUALITY ASSURANCE NURSE access obtained Developed junctional rhythm to the 40s and right CFV access obtained and tem porary pacer placed Patient noted to be pulseless and CPR restarted Decision to place Impella Left QUALITY ASSURANCE NURSE access obtained under ultrasound guidance and suitable iliac size noted on femoral angiography. Heparin administered 14 Fr sheath placed to left QUALITY ASSURANCE NURSE Pigtail used across aortic valve Impella CP placed across aortic valve. Started on auto, increased to P9. With Impella MAPs to 40s, CO 2.5 to 3.0 L. No systolic augmentation. Underlying junctional rhythm in the 40s. Left main cannulated with EBU 3.5 guide Noted to have severe multivessel coronary artery disease but LACEY II-III flow throughout Profoundly acidotic, unable to achieve MAPs >50 despite maximal pressor, hemodynamic support With multiorgan failure prior to arrest situation thought futile decision made to withdraw additional support. With discontinuation of Impella patient had PEA arrest soon thereafter. Time of 17: 55 Summary: 1. Acute coronary syndrome/severe multivessel coronary artery disease 2. Severe LV dysfunction with cardiogenic shock and multiorgan failure 3. PEA arrest Hemodynamics Rest Ao:: -- Final Ao: -- LV: - Recommendations Recommendations: None Radiation Exposure (mGy) -- Contrast (mls) -- I attest to the content of the Intraoperative Record and any orders documented therein. Any exceptions are noted below. [facility] Card Cath Procedure Codes Cardiac Catheterization Procedure 1: Cardiovascular Cath Procedures: 27452 Coronaries and LHC (+/-LV) Therapeutic Services & Ancillary Proc Procedure 1: Cardiovascular Tx and Anc Procedures: 83636 Ultrasonic Guidance Vascular Access Procedure 2: Cardiovascular Tx and Anc Procedures: 77511 Code Blue/CPR Procedure 3: Cardiovascular Tx and Anc Procedures: 21680 Insertion of Percutaneous Ventricular Assist Device Procedure 4: Cardiovascular Tx and Anc Procedures: 39715 Temp Pacer Insert PG Care Time/CCT Total # of Minutes Spent Total Time Spent with Patient: Total time spent is greater than 50% in coordination of care (as documented) at patient's floor/unit and/or counseling patient:
--- NOTE | 2019-08-12 06:15 | Electrocardiogram Report ---
Test Reason : Blood Pressure : / mmHG Vent. Rate : 118 BPM Atrial Rate : 118 BPM P-R Int : 216 ms QRS Dur : 152 ms QT Int : 336 ms P-R-T Axes : 061 009 208 degrees QTc Int : 470 ms Sinus tachycardia with 1st degree A-V block Left bundle branch block Abnormal ECG No previous ECGs available Confirmed by Jonathan Mora ([id number]) on 08/12/2019 6:15:06 AM Referred By: [facility] Confirmed By:Jonathan Mora
--- NOTE | 2019-08-12 06:24 | Electrocardiogram Report ---
Test Reason : Blood Pressure : / mmHG Vent. Rate : 113 BPM Atrial Rate : 113 BPM P-R Int : 154 ms QRS Dur : 164 ms QT Int : 414 ms P-R-T Axes : 082 -32 172 degrees QTc Int : 567 ms Sinus tachycardia Possible Left atrial enlargement Left axis deviation Left bundle branch block Abnormal ECG When compared with ECG of 11-AUG-2019 12:20, VT interval has decreased Confirmed by Jonathan Mora ([id number]) on 08/12/2019 6:23:55 AM Referred By: [facility] Confirmed By:Jonathan Mora
--- NOTE | 2019-08-12 09:06 | XCELERA ---
[id number]
--- NOTE | 2019-08-17 16:32 | Discharge Summary ---
Date of Service August 17, 2019 Admission HPI Per Admitting Provider 69yo AA male with history of prostate cancer on XRT, HCV presenting from [facility] with complaint of lethargy. Patient answers some questions and follows some commands but does not provide a robust history. Per review of outpatient records, patient with active HCV. Labs from 07/19 with BUN=22, Cr=1.09 ER Course: NSS x 3L, Ceftriaxone x 1gm. Discharge Data Consultations 08/11/19 15:33 ED Decision to Admit Stat Procedures Performed Operation Date: 08/11/19 17:00 Actual Procedures p Aspiration/PCI w/URSULA for Stemi - MD kimberley Vergara Cath, Left with Cors and Vent - MD kimberley Vergara Impella Insertion - MD kimberley Vergara Cardiopulmonary Resuscitation - MD kimberley Vergara Ins/RemTemporary Transvenous Pacer - MD kimberley Vergara Cineradiography w/Routine Exam - Nicho Bañuelos MD Hospital Course (1) Cardiomyopathy: Per Cardiology Consultation from Dr. Mora: Cardiology was consulted by Dr. Leroy at approximately 4:00 p.m.. Echocardiogram was ordered urgently so that the echo could be done while at the bedside to help guide therapy. When I arrived at the bedside, the ICU critical care team, Dr. Metcalf, was also at the bedside preparing to intubate given his respiratory status. Unfortunately, he was unable to provide any history. He was awake but was not conversing due to mental status change. He is incarcerated at [facility], and thus was accompanied by 2 guards. I was informed that he is typically active and very conversive. According to records from his correctional facility, he has not been able to move all weekend. Unable to walk, stand or sit by himself. When asked if he had any chest pain or shortness of breath, he did not respond. His eyes were open but he was quite tachypneic. Labs were obtained from his correctional facility from 07/22/2019 and he was found to have reasonable renal function with a creatinine of 1.09. His AST and ALT were 35 and 56 respectively. Today he was found to be in acute renal failure with a creatinine of 3.95, shock liver with elevated transaminase levels, and rising troponins of 96.7 noted at 1:19 p.m. with repeat troponin at 3:37 p.m. increasing to 123. Given his tenuous circumstances with significant myocardial infarction with rising troponin, severely reduced LV systolic function, and evidence of and organ damage (mentation, kidney failure, and shock liver), findings concerning for cardiogenic shock in the setting of acute FL. The decision was to proceed with cardiac catheterization, understanding increased risk with poor renal function in an attempt to improve his hemodynamics given the severity of his illness. After he was intubated by the critical care team, he was transferred to the cardiac catheterization lab. He was transferred onto the entry level lab technician table. The telemetry leads became disconnected briefly and when checking for a pulse while changing over to the catheterization lab equipment, he was found to have no pulse. Chest compressions began. Epinephrine 1 mg IV was given. Dobutamine 10 mcg/kg/min was initiated given his recently discovered compromised LV systolic function. At 1 point, rhythm returned and appeared to be sinus tachycardia with a pulse. This maintained only briefly before having an episode of what appeared to be ventricular tachycardia for only a few seconds. He then appeared to have asystole, before defibrillation could be administered. He once again underwent CPR. He once again regained a perfusing rhythm with a pulse. Dr. Bañuelos then began the cardiac catheterization procedure. Catheterization Course: After ROSC right CUSTOMER SERVICE SECURITY OFFICER access obtained Developed junctional rhythm to the 40s and right CFV access obtained and temporary pacer placed Patient noted to be pulseless and CPR restarted Decision to place Impella Left CUSTOMER SERVICE SECURITY OFFICER access obtained under ultrasound guidance and suitable iliac size noted on femoral angiography. Heparin administered 14 Fr sheath placed to left CUSTOMER SERVICE SECURITY OFFICER Pigtail used across aortic valve Impella CP placed across aortic valve. Started on auto, increased to P9. With Impella MAPs to 40s, CO 2.5 to 3.0 L. No systolic augmentation. Underlying junctional rhythm in the 40s. Left main cannulated with EBU 3.5 guide Noted to have severe multivessel coronary artery disease but LACEY II-III flow throughout Profoundly acidotic, unable to achieve MAPs >50 despite maximal pressor, hemodynamic support With multiorgan failure prior to arrest situation thought futile decision made to withdraw additional support. With discontinuation of Impella patient had PEA arrest soon thereafter. Time of 17: 55 Coding Level of Care Code Admit/DC Same Day >8hr Level 3 Diagnoses Cardiomyopathy I42.9
--- NOTE | 2019-08-22 10:16 | Coding Query ---
CODING QUERY To promote full compliance with coding requirements relating to patient care, provider participation is requested in all cases of river boat captain uncertainty. Please assist us with the question(s) below: Coding Question(s): H&P indicated acute renal failure with possible ATN in the setting of cardiogenic shock. Please indicate if ATN was confirmed. Physician's Response(s): ( ) Acute renal failure with ATN ( ) Other specified acute renal failure (please specify) ( X ) Unspecified acute renal failure Thank you Lili Rivera Principal Diagnosis: "that condition established after study, to be chiefly responsible for occasioning the admission of the patient to the hospital for care." Co-Existing Principal Diagnosis: "when two or more diagnoses equally meet the criteria for principal diagnosis as determined by the circumstances of admission, diagnostic work up, and/or therapy provided, and the Alphabetic Index, Tabular List, or another coding guideline does not provide sequencing direction, any one of the diagnoses may be sequenced first." "When the physician has documented what appears to be a current diagnosis in the body of the record, but has not included the diagnosis in the final diagnostic statement, the physician should be asked whether the diagnosis should be added." ([facility] 2 QTR90. p3-4) RITESH
--- NOTE | 2019-08-22 10:24 | Coding Query ---
CODING QUERY To promote full compliance with coding requirements relating to patient care, provider participation is requested in all cases of silverware cleaner uncertainty. Please assist us with the question(s) below: Coding Question(s): CAD Presentation: Non STEMI Pre-Procedure Diagnosis: Acute coronary syndrome Post-Procedure Diagnosis: Severe CAD Please indicate if acute CT was present or ruled out. Physician's Response(s): ( X ) Non STEMI was present ( ) Other acute CT was present (please specify) ( ) CT was ruled out ( ) Unable to determine Thank you Lili Rivera Principal Diagnosis: "that condition established after study, to be chiefly responsible for occasioning the admission of the patient to the hospital for care." Co-Existing Principal Diagnosis: "when two or more diagnoses equally meet the criteria for principal diagnosis as determined by the circumstances of admission, diagnostic work up, and/or therapy provided, and the Alphabetic Index, Tabular List, or another coding guideline does not provide sequencing direction, any one of the diagnoses may be sequenced first." "When the physician has documented what appears to be a current diagnosis in the body of the record, but has not included the diagnosis in the final diagnostic statement, the physician should be asked whether the diagnosis should be added." ([facility] 2 QTR90. p3-4) RITESH
== END 2019-08-11 17:55 | disposition expired | DRG 215 ==
LOC: ED 12:08 → 1E 16:25 → CC 17:14
PROC: CLB.CPR (2019-08-11 17:00)